=== PATIENT | male | born 1940 | race Caucasian/White ===

== ENCOUNTER 2016-03-25 14:38 | Emergency (ER) | payer MEDICAID, OTHER ==
[~2016-03-25] VITALS: Ht 175.3 cm; Wt 49.0 kg
[~2016-03-25 14:38] MED LIST: ALBU17AE3 IH; CEFU500T PO; DOXY100C2 PO
[2016-03-25] MEDS ORDERED: NS IV 1000 ML 1,000 ML IV ONE (15:22)
[2016-03-25] MEDS ORDERED: RT-ALBUTEROL/IPRATROPIUM 3 ML (DUONEB) VIAL INH ONE (15:30)
--- NOTE | 2016-03-25 15:37 | ED General ---
General Chief Complaint: Neurological Problems Stated Complaint: CONFUSED Nursing Triage Note: AMB TO ED WITH MALE FRIEND. PATIENT REPORTS THAT HE HAS BEEN GETTING CONFUSED OFF AND ON FOR A WHILE LEFT HOME TODAY AND GOT LOST. UNKONW WHAT TIME CONFUSION STARTED. FRIEND LEFT PHONE NUMBER [phone] Nursing Sepsis Screen: No Definite Risk Source of Information: Patient, Old Records Exam Limitations: No Limitations History of Present Illness Time Seen by Provider: 15:13 Initial Comments This 75-year-old male patient was dropped off at the emergency room by a friend or acquaintance because he was lost. He was unable to find his way home to the [facility] where he reportedly lives. Review of his chart notes that in July he was homeless and sleeping at the [facility]. He is aware he is at the hospital but does not know what month it is. He appears cachectic and is wheezing. He also reports coughing up blood occasionally and having upper abdominal pain with nausea and vomiting. He denies any substance use except cigarettes. When I asked how long he had been ill, he stated "I don't ever recall being healthy". An ER visit from 2012 Notes history of methamphetamine abuse. Allergies and Home Medications Allergies Coded Allergies: No Known Drug Allergies (Unverified , 04/09/12) Home Medications Albuterol 17 Gm Inh #1 2 SPRAY IH Q 4 HOURS PRN PRN FOR BREATHING Prescribed by: GIANNI PABLO on 04/09/121757 Albuterol Sulfate 8.5 Gm Hfa.aer.ad #1 1-4 PUFF IH Q4H PRN PRN SHORTNESS OF BREATH Prescribed by: DAVIE ZIMMERMAN on 03/25/16 1730 Cefuroxime Axetil 500 Mg Tablet #14 500 MG PO BID Prescribed by: AROLDO POST on 08/20/15 1818 Doxycycline Hyclate 100 Mg Capsule #20 1 EACH PO BID FOR INFECTION Prescribed by: GIANNI PABLO on 04/09/12 175 Constitutional: weakness EENTM: no symptoms reported Respiratory: see HPI Cardiovascular: no symptoms reported Gastrointestinal: see HPI Genitourinary: no symptoms reported Musculoskeletal: no symptoms reported Skin: no symptoms reported Psychiatric/Neurological: See HPI Hematologic/Lymphatic: No Symptoms Reported Past Hvkdabl-Nktgro-Cjfuwz Hx Patient Social History Alcohol Use: Past History Recreational Drug Use: Yes (prior methamphetamines) Smoking Status: Current Everyday Smoker Recent Foreign Travel: No Contact w/Someone Who Travel: No Recent Infectious Disease Expo: No Recent Hopitalizations: No Surgeries HX Surgeries: Yes (APPY) Surgeries: Appendectomy Respiratory Hx Respiratory Disorders: Yes Respiratory Disorders: COPD Cardiovascular Hx Cardiac Disorders: No Neurological Hx Neurological Disorders: Yes Neurological Disorders: Neuropathy Reproductive System Hx Reproductive Disorders: No Genitourinary Hx Genitourinary Disorders: No Gastrointestinal Hx Gastrointestinal Disorders: No Musculoskeletal Hx Musculoskeletal Disorders: No Endocrine Hx Endocrine Disorders: Yes Endocrine Disorders: Diabetes, Non-Insulin dep HEENT HX ENT Disorders: No Cancer Hx Cancer: No Psychosocial Hx Psychiatric Problems: Yes (substance abuse, hx homelessness) Physical Exam Vital Signs Vital Sign - Last 12Hours 03/25/16 15:02 Temp 98.6 Pulse 87 Resp 18 B/P 185/91 Pulse Ox 97 O2 Delivery Room Air Capillary Refill : Less Than 3 Seconds General Appearance: No Apparent Distress WD/WN Chronically ill Cachetic HEENT: PERRL/EOMI Normal ENT Inspection Other (oropharynx dry) Neck: Normal Inspection Respiratory: Normal Breath Sounds No Accessory Muscle Use No Respiratory Distress Wheezing (diffuse with decreased air movement) Cardiovascular: Regular Rate, Rhythm No Edema No Murmur Gastrointestinal: Normal Bowel Sounds Soft Tenderness (mild in the epigastrium and suprapubic regions) Extremity: Normal Inspection No Pedal Edema Neurologic/Psychiatric: Alert Motor Weakness (generalized) Other (disoriented to month. Depressed mood. Fine tremor) Skin: Normal Color Warm/Dry Progress/Results/Core Measures Results/Orders Lab Results Laboratory Tests Test 03/25/16 15:35 03/25/16 16:41 Range/Units Activated Partial Thromboplast Time 26 24-35 SEC Alanine Aminotransferase (ALT/SGPT) 11 0-55 U/L Albumin 4.2 3.2-4.5 G/DL Alkaline Phosphatase 41 40-136 U/L Anion Gap 8 5-14 MMOL/L Aspartate Amino Transf (AST/SGOT) 14 5-34 U/L BUN/Creatinine Ratio 14 Basophils # (Auto) 0.0 0.0-0.1 10^3/uL Basophils (%) (Auto) 0 0-10 % Blood Urea Nitrogen 16 7-18 MG/DL Calcium Level 9.4 8.5-10.1 MG/DL Carbon Dioxide Level 30 21-32 MMOL/L Chloride Level 104 98-107 MMOL/L Creatinine 1.11 0.60-1.30 MG/DL Eosinophils # (Auto) 0.1 0.0-0.3 10^3/uL Eosinophils (%) (Auto) 1 0-10 % Estimat Glomerular Filtration Rate > 60 Glucose Level 73 70-105 MG/DL Hematocrit 43 40-54 % Hemoglobin 14.4 13.3-17.7 G/DL INR Comment 1.0 0.8-1.4 Lactic Acid Level 1.3 0.5-2.0 MMOL/L Lipase 15 8-78 U/L Lymphocytes # (Auto) 3.7 1.0-4.0 X 10^3 Lymphocytes (%) (Auto) 37 12-44 % Mean Corpuscular Hemoglobin 31 25-34 PG Mean Corpuscular Hemoglobin Concent 33 32-36 G/DL Mean Corpuscular Volume 92 80-99 FL Mean Platelet Volume 9.8 7.4-10.4 FL Monocytes # (Auto) 0.9 0.0-1.0 X 10^3 Monocytes (%) (Auto) 9 0-12 % Neutrophils # (Auto) 5.5 1.8-7.8 X 10^3 Neutrophils (%) (Auto) 54 42-75 % Platelet Count 234 130-400 10^3/uL Potassium Level 3.9 3.6-5.0 MMOL/L Prothrombin Time 13.1 12.2-14.7 SEC Red Blood Count 4.72 4.35-5.85 10^6/uL Red Cell Distribution Width 13.7 10.0-14.5 % Serum Alcohol < 10 <10 MG/DL Sodium Level 142 135-145 MMOL/L Total Bilirubin 0.3 0.1-1.0 MG/DL Total Protein 7.3 6.4-8.2 G/DL White Blood Count 10.2 4.3-11.0 10^3/uL Urine Bacteria NONE /HPF Urine Bilirubin NEGATIVE NEGATIVE Urine Casts NONE /LPF Urine Clarity CLEAR Urine Color YELLOW Urine Crystals NONE /LPF Urine Culture Indicated NO Urine Glucose (UA) NEGATIVE NEGATIVE Urine Ketones NEGATIVE NEGATIVE Urine Leukocyte Esterase NEGATIVE NEGATIVE Urine Mucus NEGATIVE /LPF Urine Nitrite NEGATIVE NEGATIVE Urine Protein 1+ H NEGATIVE Urine RBC NONE /HPF Urine RBC (Auto) NEGATIVE NEGATIVE Urine Specific [place] 1.010 L 1.016-1.022 Urine Urobilinogen NORMAL NORMAL MG/DL Urine WBC RARE /HPF Urine pH 7 5-9 My Orders Orders-DAVIE MENDOZA MD Alcohol (03/25/16 15:13) Cbc With Automated Diff (03/25/16 15:13) Comprehensive Metabolic Panel (03/25/16 15:13) Drug Screen Stat (Urine) (03/25/16 15:13) Ua Culture If Indicated (03/25/16 15:13) Saline Lock/Iv-Start (03/25/16 15:13) Lactic Acid Analyzer (03/25/16 15:21) Blood Culture (03/25/16 15:21) Sputum Culture (03/25/16 15:21) Protime With Inr (03/25/16 15:21) Partial Thromboplastin Time (03/25/16 15:21) Chest 1 View, Ap/Pa Only (03/25/16 15:21) O2 (03/25/16 15:21) Vital Signs Adult Sepsis Patie Q1HR (03/25/16 15:21) Ns Iv 1000 Ml (Sodium Chloride 0.9%) (03/25/16 15:22) Lipase (03/25/16 15:25) Albuterol/Ipra Inhalation Soln (Duoneb I (03/25/16 15:30) Svn Sm Volume Nebulizer Rt-Rfs (03/25/16 15:27) Medications Given in ED Current Medications Medications Dose Ordered Sig/Amy Route Start Time Stop Time Status Last Admin Dose Admin Albuterol/ Ipratropium 3 ml ONCE ONCE INH 03/25/16 15:30 03/25/16 15:31 DC 03/25/16 15:33 3 ML Sodium Chloride 1,000 ml @ 0 mls/hr Q0M ONCE IV 03/25/16 15:22 03/25/16 15:24 DC 03/25/16 15:42 1,000 MLS/HR Vital Signs/I&O Vital Sign - Last 12Hours 03/25/16 03/25/16 15:02 15:36 Temp 98.6 Pulse 87 Resp 18 B/P 185/91 Pulse Ox 97 95 O2 Delivery Room Air Room Air Blood Pressure Mean: 122 Progress Note #1: Time: 16:39 Progress Note Patient received a liter of IV fluids. Vital signs were within normal range. There was no hypoxia or tachycardia. No lower extremity tenderness in the calves beyond his chronic neuropathy. DuoNeb and improved his wheezing. Urine studies are pending. Progress Note #2: Time: 17:31 Progress Note Urine showed no evidence of infection. Patient was feeling better and was requesting discharge. His acquaintance was contacted to give him a ride. Progress Note #3: Time: 17:39 Progress Note As patient was checking out he requested medication for his chronic neck pain. This request was denied as it was not the complaint for which he was brought to the emergency room. I informed him treatment of chronic pain is the function of a primary care physician and not the emergency room. He was urged to follow up with his primary care provider. I also addressed the results of his urine drug screen. Patient denied methamphetamine use but did admit to marijuana. I informed him substance abuse was likely the cause of his intermittent confusion. Patient was significantly more alert and less confused prior to dismissal. Diagnostic Imaging Diagonstic Imaging: Xray Plain Films/CT/US/NM/MRI: chest Comments Chest x-ray viewed by me and compared with prior. Report reviewed. See report below: NAME: STEVO CAVANAUGH [facility] REC#: [id number] PT STATUS: REG ER : 1940 PHYSICIAN: DAVIE MENDOZA MD ADMIT DATE: 03/25/16/ER Draft Date of Exam:03/25/16 CHEST 1 VIEW, AP/PA ONLY INDICATION: Cough and confusion. TIME OF EXAM: 1558 hours. COMPARISON: Comparison is made to study of 08/20/2015. FINDINGS: Similar to the previous study, interstitial markings are prominent throughout the lungs with calcified granuloma seen in the right hilum and lung. There is no evidence of pneumothorax, consolidation, or significant pleural fluid. IMPRESSION: Interstitial markings, prominent in both lungs with granulomatous residua, similar to previous exam. No definite acute abnormalities identified. Dictated on workstation # [id number] Dict: 03/25/16 1621 Trans: 03/25/16 1627 [id number] Interpreted by: VELIA ULRICH MD Departure Impression Impression: Primary Impression: COPD exacerbation Additional Impressions: Confusion Polysubstance abuse Disposition: HOME, SELF-CARE Condition: Improved Departure-Patient Inst. Decision time for Depature: 17:29 Referrals: [facility] (PCP/Family) Primary Care Physician Patient Instructions: Exacerbation of COPD Add. Discharge Instructions: Follow-up with your primary care provider soon as possible. Use your albuterol inhaler 1-4 puffs every 4 hours as needed for shortness of air. Return to the emergency room if you have worsening symptoms. Work toward quitting smoking and seek help from your doctor to quit. All discharge instructions reviewed with patient and/or family. Voiced understanding. Scripts Albuterol Sulfate (Proair Hfa)8.5 Gm Hfa.aer.ad1-4 Puff IH Q4H PRN SHORTNESS OF BREATH #1 INH Prov:DAVIE MENDOZA MD 03/25/16 DAVIE MENDOZA MD Mar 25, 2016 15:37
[2016-03-25 15:44] LABS: BASOPHILS % (AUTO) 0 % (0-10); EOSINOPHILS # (AUTO) 0.1 10^3/uL (0.0-0.3); EOSINOPHILS % (AUTO) 1 % (0-10); LYMPHOCYTES # (AUTO) 3.7 X 10^3 (1.0-4.0); LYMPHOCYTES % (AUTO) 37 % (12-44); MEAN CORPUSCULAR HEMOGLOBIN 31 PG (25-34); MEAN CORPUSCULAR HGB CONC 33 G/DL (32-36); MEAN CORPUSCULAR VOLUME 92 FL (80-99); MEAN PLATELET VOLUME 9.8 FL (7.4-10.4); MONOCYTES # (AUTO) 0.9 X 10^3 (0.0-1.0); MONOCYTES % (AUTO) 9 % (0-12); NEUTROPHILS # (AUTO) 5.5 X 10^3 (1.8-7.8); NEUTROPHILS % (AUTO) 54 % (42-75); PLATELET COUNT 234 10^3/uL (130-400); RED BLOOD COUNT 4.72 10^6/uL (4.35-5.85); RED CELL DISTRIBUTION WIDTH 13.7 % (10.0-14.5); WHITE BLOOD COUNT 10.2 10^3/uL (4.3-11.0)
[2016-03-25 15:57] LABS: PROTHROMBIN TIME PATIENT 13.1 SEC (12.2-14.7)
[2016-03-25 16:09] LABS: ALANINE AMINOTRANSFERASE 11 U/L (0-55); ALBUMIN 4.2 G/DL (3.2-4.5); ANION GAP 8 MMOL/L (5-14); ASPARTATE AMINO TRANSFERASE 14 U/L (5-34); BILIRUBIN,TOTAL 0.3 MG/DL (0.1-1.0); BLOOD UREA NITROGEN 16 MG/DL (7-18); BUN/CREATININE RATIO 14; CALCIUM 9.4 MG/DL (8.5-10.1); CARBON DIOXIDE 30 MMOL/L (21-32); CHLORIDE 104 MMOL/L (98-107); CREATININE SERUM 1.11 MG/DL (0.60-1.30); GFR ESTIMATED > 60; GLUCOSE 73 MG/DL (70-105); LIPASE 15 U/L (8-78); POTASSIUM 3.9 MMOL/L (3.6-5.0); SODIUM 142 MMOL/L (135-145); TOTAL PROTEIN 7.3 G/DL (6.4-8.2)
[2016-03-25 16:18] LABS: ALCOHOL < 10 MG/DL (<10)
--- NOTE | 2016-03-25 16:27 | Diagnostic Imaging Report ---
INDICATION: Cough and confusion. TIME OF EXAM: 1558 hours. COMPARISON: Comparison is made to study of 08/20/2015. FINDINGS: Similar to the previous study, interstitial markings are prominent throughout the lungs with calcified granuloma seen in the right hilum and lung. There is no evidence of pneumothorax, consolidation, or significant pleural fluid. IMPRESSION: Interstitial markings, prominent in both lungs with granulomatous residua, similar to previous exam. No definite acute abnormalities identified. Dictated by: Dictated on workstation # [id number]
[2016-03-25 16:51] LABS: BILIRUBIN,URINE NEGATIVE (NEGATIVE); KETONES,URINE NEGATIVE (NEGATIVE); LEUKOCYTE ESTERASE ,URINE NEGATIVE (NEGATIVE); NITRITE,URINE NEGATIVE (NEGATIVE); PH,URINE 7 (5-9); PROTEIN,URINE 1+ (NEGATIVE); UROBILINOGEN,URINE NORMAL (NORMAL)
[2016-03-25 17:03] LABS: WBC,URINE RARE /HPF
[2016-03-25] MEDS ORDERED: RT-ALBUINH IH (17:30)
[2016-03-25 17:32] VITALS: BP 170/92
== END 2016-03-25 17:38 | disposition home or self-care (01) ==
LOC: EDUNIT# 14:38 → ER 14:44
DX: J44.1 Chronic obstructive pulmonary disease with (acute) exacerbation (principal); R41.0 Disorientation, unspecified; E11.9 Type 2 diabetes mellitus without complications; F17.210 Nicotine dependence, cigarettes, uncomplicated; F15.10 Other stimulant abuse, uncomplicated; F12.10 Cannabis abuse, uncomplicated
CPT/HCPCS: 36415; 71010; 80053; 80306; 80320; 81000; 83605; 83690; 85025; 85610; 85730; 87040; 94640; 96360

== ENCOUNTER 2017-10-13 12:47 | Emergency (ER) | payer MEDICAID ==
[~2017-10-13] VITALS: Ht 175.3 cm; Wt 47.6 kg
[~2017-10-13 12:47] MED LIST changes: +RT-ALBUINH IH
--- OUTSIDE RECORDS SUMMARY | 2017-10-13 12:53 | XMS REPORT ---
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 Active 26175502 Problem Tobacco use Z72.0 Active 273363629 ALLERGIES Substance Reaction Event Type Date Status Chicken, Anderson Unknown Non Drug Allergy Oct, Active ENCOUNTERS Encounter Location Date Diagnosis [facility] [id number] [place] [address] Oct, [facility] [id number] [place] [address] 36181- 4480 Aug, [facility] [id number] [place] [address] 46916- 7113 Jul, [facility] [id number] [place] [address] 45659- 1666 Jan, 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 [facility] [id number] [place] [address] 88398- 1564 Jan, Essential hypertension I10 [facility] [id number] [place] [address] 6[address]99- 3760 Jan, [facility] [id number] [place] [address] 17720- 0246 Jan, [facility] [id number] [place] [address] 64284- 2145 Dec, [facility] [address] [address] Dec, [facility] [id number] [place] [address] 92490- 0629 Nov, 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.9 and End stage COPD J44.9 [facility] [id number] [place] [address] 39632- 8991 Oct, Essential hypertension I10 ; Tobacco use Z72.0 and COPD exacerbation J44.1 [facility] [id number] [place] [address] 68364- 6806 Oct, Essential hypertension I10 ; COPD exacerbation J44.1 ; Right arm pain M79.601 and Thickened nails L60.2 [facility] [address] [address] Aug, [facility] [id number] [place] [address] 04627- 75[address] Aug, [facility] [id number] [place] [address] 86493- 4641 Jul, [facility] [id number] [place] [address] 42517- 5904 June, [facility] [id number] [place] [address] 52108- 7531 May, COPD with exacerbation J44.1 and Essential hypertension I10 [facility] [id number] [address] May, 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.9 and COPD exacerbation J44.1 [facility] [id number] [place] [address] 46793- 0173 Apr, Essential hypertension I10 [facility] [address] [address] Apr, Onychomycosis B35.1 ; Nail hypertrophy L60.2 and Self-care deficit for hygiene R46.0 [facility] [id number] [place] [address] 13445- 0151 Jan, 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 ; 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.9 ; Tobacco use Z72.0 ; Essential hypertension I10 and Moderate episode of recurrent major depressive disorder F33.1 [facility] [id number] [place] [address]01 [address] Dec, Neck pain M54.2 ; Essential hypertension I10 and Tobacco dependence F17.200 [facility] [id number] [place] [address] 64016- 9803 May, [facility] [id number] [place] [address] 01181- 6920 May, [facility] [id number] [place] [address] 16431- 2927 Sep, [facility] [id number] [place] [address] 09756- 4910 Sep, [facility] [id number] [place] [address] 85167- 3315 Sep, [facility] [id number] [place] [address] 61907- 8279 Sep, [facility] [id number] [place] [address] 75493- 1899 Aug, [facility] [id number] [place] [address] 31766- 3680 Aug, [facility] [id number] [place] [address] 85151- 8277 Jul, [facility] [id number] [place] [address] 17943- 7015 Jul, [facility] [id number] [place] [address] 27106- 2407 Jul, [facility] [place] [facility] [address] [id number] [place] [address] Jul, [facility] [place] [facility] [address] [id number] [place] [address] Jul, [facility] [place] [facility] [address] [id number] [place] [address]- [address] Jul, [facility] [place] [facility] [address] [id number] [place] [address] Jul, [facility] [place] [facility] [address] [id number] [place] [address]- [address] Jul, [facility] [place] [facility] [address] [id number] [place] [address]- 8957 Jul, [facility] [place] [facility] [address] [id number] [place] [address]- [address] June, [facility] [place] [facility] [address] [id number] [place] [address]- 9013 June, [facility] [place] [facility] [address] [id number] [place] [address]- 8347 June, [facility] [place] [facility] [address] [id number] [place] [address]- 3057 June, [facility] [place] [facility] [address] [id number] [place] [address]- 7327 June, [facility] [place] [facility] [address] [id number] [place] [address]- 7082 June, [facility] [place] [facility] [address] [id number] [place] [address]- 2590 June, [facility] [place] [facility] [address] [id number] [place] [address]- 6169 June, [facility] [place] [facility] [address] [id number] [place] [address]- 9204 June, [facility] [place] [facility] [address] [id number] [place] [address]- [address] June, [facility] [address] [facility] [id number] [place] [address]- 4[address] June, [facility] [address] [facility] [id number] [place] [address]- [address] June, IMMUNIZATIONS No Known Immunizations SOCIAL HISTORY Never Assessed REASON FOR VISIT COPD f/u-AHarrymanRN, Diabetic, having trouble with his feet, states one of his toe nails is black, worker states he had headlice, she treated, now he has a rash, wants hep c testing, thinks he has a blood clot in right arm PLAN OF CARE Activity Details Follow Up 1 Week with Nerissa villegas COPD exac Reason: VITAL SIGNS Height 69 in 2016-11-27 Weight 111.8 lbs 2016-11-27 Temperature 97.8 degrees Fahrenheit 2016-11-27 Heart Rate 82 bpm 2016-11-27 Respiratory Rate 24 2016-11-27 Oximetry 98 % 2016-11-27 BMI 16.51 kg/m2 2016-11-27 Blood pressure systolic 170 mmHg 2016-11-27 Blood pressure diastolic 88 mmHg 2016-11-27 MEDICATIONS Medication Instructions Dosage Frequency Start Date End Date Duration Status Symbicort 160-4.5 mcg/act 1 puff BID 12h 17 Jul, 2013 30 Active PredniSONE 20 mg Orally Once a day 1 tablet 24h 28 Oct, 2016 Nov, 07 days Active Lisinopril 10 mg Orally Once a day 1 tablet 24h 21 Jan, 2016 Active Ventolin HFA 108 (90 Base) MCG/ACT Inhalation every 4-6 hrs as needed 2 puffs as needed June, Active RESULTS No Results PROCEDURES Procedure Date Ordered Result Body Site MEASURE BLOOD OXYGEN LEVEL Nov 27, 2016 [facility] VISIT ESTABLISHED PATIENT Nov 27, 2016 INSTRUCTIONS MEDICATIONS ADMINISTERED No Known Medications MEDICAL (GENERAL) HISTORY Type Description Date Medical History type II diabetes Medical History chronic obstructive pulmonary disease (COPD) Medical History hypertension Surgical History appendectomy Surgical History Dental surgery Hospitalization History COPD multiple times 2015
--- OUTSIDE RECORDS SUMMARY | 2017-10-13 12:53 | XMS REPORT ---
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 Active 02415491 Problem Tobacco use Z72.0 Active 349319233 ALLERGIES No Information ENCOUNTERS Encounter Location Date Diagnosis [facility] [id number] [place] [address] 60387- 2136 Jul, [facility] [id number] [place] [address] 63857- 5644 Jan, 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 [facility] [id number] [place] [address] 80679- 1806 Jan, Essential hypertension I10 [facility] [id number] [place] [address] 12600- 6478 Jan, [facility] [id number] [place] [address] 02732- 4491 Jan, [facility] [id number] [place] [address] 29836- 2952 Dec, [facility] [id number] [place] [address] 65895- 7442 Dec, [facility] [id number] [place] [address] 96375- 5906 Nov, 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.9 and End stage COPD J44.9 [facility] [id number] [place] [address] 97417- 3786 29 Oct, 2016 Essential hypertension I10 ; Tobacco use Z72.0 and COPD exacerbation J44.1 [facility] [id number] [place] [address] 11395- 8271 28 Oct, 2016 Essential hypertension I10 ; COPD exacerbation J44.1 ; Right arm pain M79.601 and Thickened nails L60.2 [place] [id number] [place] [address] 32204- 5442 Aug, [place] [address] [address]- 1967 Aug, [place] [id number] [place] [address] 77241- 5545 Jul, [place] [id number] [place] [address] 67059- 3918 June, [place] [id number] [place] [address] 19861- 8051 May, COPD with exacerbation J44.1 and Essential hypertension I10 [place] [id number] [place] [address] 69728- 8218 May, 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.9 and COPD exacerbation J44.1 [place] [id number] [place] [address] 05117- 4520 Apr, Essential hypertension I10 [place] [id number] [place] [address] 95633- 2767 Apr, Onychomycosis B35.1 ; Nail hypertrophy L60.2 and Self-care deficit for hygiene R46.0 [facility] [id number] [place] [address] 62128- 6976 Jan, 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 ; 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.9 ; Tobacco use Z72.0 ; Essential hypertension I10 and Moderate episode of recurrent major depressive disorder F33.1 [facility] [address] [address] Dec, Neck pain M54.2 ; Essential hypertension I10 and Tobacco dependence F17.200 [facility] [address] [address] 3379 14 May, 2014 [facility] [id number] [place] [address] 43368- 0290 May, [facility] [address] [address]- 5687 Sep, [facility] [id number] [place] [address] 28990- 5021 Sep, [facility] [id number] [place] [address] 49127- 8944 Sep, [facility] [id number] [place] [address] 26513- 2545 Sep, [facility] [address] [address]- 8571 Aug, [facility] [id number] [address]- 6938 Aug, [facility] [address], [place] [address]- 8721 Jul, [facility] [address], [place] [address]- 0262 Jul, [facility] [address], [place] [address]- 8805 Jul, [facility] [address], [place] [address]- 5562 Jul, [facility] [address], [place] [address]- 2661 Jul, [facility] [address] [id number] [place] [address]- 6209 Jul, [facility] [address] [id number] [place] [address]- 4675 Jul, [facility] [address] [id number] [place] [address]- 3578 Jul, [facility] [address] [id number] [place] [address]- 6010 Jul, [facility] [address] [id number] [place] [address]- 5467 June, [facility] [address] [id number] [place] [address]- 5694 June, [facility] [address] [id number] [place] [address]- 9480 June, [facility] [address] [id number] [place] [address]- 6362 June, [facility] [address] [id number] [place] [address]- 9340 June, [facility] [address] [id number] [place] [address]- 3771 June, [facility] [address] [id number] [place] [address]- 3278 June, [facility] [address] [id number] [place] [address]- 5670 June, [facility] [address] [id number] [place] [address]- 7054 June, [facility] [address] [id number] [place] [address]- 0536 June, [facility] [address] [id number] [place] [address]- 3271 June, [facility] [address] [id number] [place] [address]- 9709 June, IMMUNIZATIONS No Known Immunizations SOCIAL HISTORY Never Assessed REASON FOR VISIT [facility]osp[facility] PLAN OF CARE VITAL SIGNS MEDICATIONS Unknown Medications RESULTS No Results PROCEDURES No Known procedures INSTRUCTIONS MEDICATIONS ADMINISTERED No Known Medications MEDICAL (GENERAL) HISTORY Type Description Date Medical History type II diabetes Medical History chronic obstructive pulmonary disease (COPD) Medical History hypertension Surgical History appendectomy Surgical History Dental surgery Hospitalization History COPD multiple times 2016
--- OUTSIDE RECORDS SUMMARY | 2017-10-13 12:53 | XMS REPORT ---
Author Author BRIDGER SAENZ Organization [facility] Address [address] [place] [address] Care Team Providers Care Clerk Entry Level Name Role Phone BRIDGER SAENZ Unavailable PROBLEMS Type Condition ICD9-CM Code CAO84-FR Code Onset Dates Condition Status SNOMED Code Problem End stage COPD J44.9 Active 084665182 Problem Moderate episode of recurrent major depressive disorder F33.1 Active 566591138 Problem Essential hypertension I10 Active 25378583 Problem 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 Active 72066909 Problem Tobacco use Z72.0 Active 980017139 ALLERGIES No Information ENCOUNTERS Encounter Location Date Diagnosis [facility] [id number] [place] [address] 12710- 9083 Jul, [facility] [id number] [place] [address] 95868- 0840 Jan, 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 [facility] [id number] [place] [address] 24744- 3299 Jan, Essential hypertension I10 [facility] [id number] [place] [address] 33892- 8864 Jan, [facility] [id number] [place] [address] 50558- 9272 Jan, [facility] [id number] [place] [address] 52325- 3883 Dec, [facility] [id number] [place] [address] 87957- 1459 Dec, [facility] [id number] [place] [address] 10704- 9175 Nov, 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.9 and End stage COPD J44.9 [facility] [address] [place] [address] 05732- 3790 29 Oct, 2016 Essential hypertension I10 ; Tobacco use Z72.0 and COPD exacerbation J44.1 [facility] [id number] [place] [address] 30627- 3651 28 Oct, 2016 Essential hypertension I10 ; COPD exacerbation J44.1 ; Right arm pain M79.601 and Thickened nails L60.2 [place] [id number] [place] [address] 68034- 4023 Aug, [place] [address] 98033- 3900 Aug, [place] [id number] [place] [address] 37086- 5875 Jul, [place] [id number] [place] [address] 43863- 4374 June, [place] [id number] [place] [address] 52019- 7341 May, COPD with exacerbation J44.1 and Essential hypertension I10 [place] [id number] [place] [address] 87162- 8554 May, 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.9 and COPD exacerbation J44.1 [place] [id number] [place] [address] 72916- 2498 Apr, Essential hypertension I10 [place] [id number] [place] [address] 01533- 6326 Apr, Onychomycosis B35.1 ; Nail hypertrophy L60.2 and Self-care deficit for hygiene R46.0 [facility] [address] [place] [address] 27024- 0867 Jan, 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 ; 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.9 ; Tobacco use Z72.0 ; Essential hypertension I10 and Moderate episode of recurrent major depressive disorder F33.1 [facility] [address] [address] Dec, Neck pain M54.2 ; Essential hypertension I10 and Tobacco dependence F17.200 [facility] [address] [address]- 0930 14 May, 2014 [facility] [id number] [place] [address] 51030- 5001 May, [facility] [address], [place] [address]- 1444 Sep, [facility] [id number] [place] [address] 30469- 7714 Sep, [facility] [id number] [place] [address] 72360- 2900 Sep, [facility] [address] [place] [address] 78401- 3301 Sep, [facility] [address], [place] [address]- 4431 Aug, [facility] [id number] [address]- 8762 Aug, [facility] [address], [place] [address]- 2350 Jul, [facility] [address], [place] [address]- 8328 Jul, [facility] [address], [place] [address]- 3046 Jul, [facility] [address], [place] [address]- 8677 Jul, [facility] [address], [place] [address]- 5903 Jul, [facility] [address] [address] [place] [address]- 4373 Jul, [facility] [address] [id number] [place] [address]- 9132 Jul, [facility] [address] [id number] [place] [address]- 8694 Jul, [facility] [address] [id number] [place] [address]- 5563 Jul, [facility] [address] [id number] [place] [address]- 1908 June, [facility] [address] [id number] [place] [address]- 6761 June, [facility] [address] [id number] [place] [address]- 1941 June, [facility] [address] [id number] [place] [address]- 5847 June, [facility] [address] [id number] [place] [address]- 5347 June, [facility] [address] [id number] [place] [address]- 5387 June, [facility] [address] [id number] [place] [address]- 0356 June, [facility] [address] [id number] [place] [address]- 7278 June, [facility] [address] [id number] [place] [address]- 0462 June, [facility] [address] [id number] [place] [address]- 7369 June, [facility] [address] [id number] [place] [address]- 8576 June, [facility] [address] [id number] [place] [address]- 3531 June, IMMUNIZATIONS No Known Immunizations SOCIAL HISTORY Never Assessed REASON FOR VISIT Requesting medication PLAN OF CARE VITAL SIGNS MEDICATIONS Medication Instructions Dosage Frequency Start Date End Date Duration Status Hydrocodone-Acetaminophen 7.5-325 MG Orally every 6 hrs 1 tablet as needed 6h Jan, Mar, 28 days Active RESULTS No Results PROCEDURES No Known procedures INSTRUCTIONS MEDICATIONS ADMINISTERED No Known Medications MEDICAL (GENERAL) HISTORY Type Description Date Medical History type II diabetes Medical History chronic obstructive pulmonary disease (COPD) Medical History hypertension Surgical History appendectomy Surgical History Dental surgery Hospitalization History COPD multiple times 2016
--- OUTSIDE RECORDS SUMMARY | 2017-10-13 12:53 | XMS REPORT ---
Author Author BRIDGER SAENZ Organization [facility] Address [address] [place] [address] Care Team Providers Care Fire Hydrant Operator Name Role Phone BRIDGER SAENZ Unavailable PROBLEMS Type Condition ICD9-CM Code LOH95-JY Code Onset Dates Condition Status SNOMED Code Problem End stage COPD J44.9 Active 124528656 Problem Moderate episode of recurrent major depressive disorder F33.1 Active 206025565 Problem Essential hypertension I10 Active 80740812 Problem 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 Active 29120677 Problem Tobacco use Z72.0 Active 877777920 ALLERGIES No Information ENCOUNTERS Encounter Location Date Diagnosis [facility] [id number] [place] [address] 51219- 9526 Jul, [facility] [id number] [place] [address] 43780- 7277 Jan, 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 [facility] [id number] [place] [address] 81671- 7082 Jan, Essential hypertension I10 [facility] [id number] [place] [address] 78407- 2319 Jan, [facility] [id number] [place] [address] 50417- 6103 Jan, [facility] [id number] [place] [address] 73368- 9859 Dec, [facility] [id number] [place] [address] 95346- 8595 Dec, [facility] [id number] [place] [address] 23131- 3363 Nov, 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.9 and End stage COPD J44.9 [facility] [address] [place] [address] 64685- 3180 29 Oct, 2016 Essential hypertension I10 ; Tobacco use Z72.0 and COPD exacerbation J44.1 [facility] [id number] [place] [address] 97914- 7708 28 Oct, 2016 Essential hypertension I10 ; COPD exacerbation J44.1 ; Right arm pain M79.601 and Thickened nails L60.2 [place] [id number] [place] [address] 69432- 7437 Aug, [place] [address] 97523- 4978 Aug, [place] [id number] [place] [address] 97066- 8345 Jul, [place] [id number] [place] [address] 86426- 4034 June, [place] [id number] [place] [address] 60293- 2009 May, COPD with exacerbation J44.1 and Essential hypertension I10 [place] [id number] [place] [address] 86903- 1419 May, 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.9 and COPD exacerbation J44.1 [place] [id number] [place] [address] 01231- 5743 Apr, Essential hypertension I10 [place] [id number] [place] [address] 30076- 1908 Apr, Onychomycosis B35.1 ; Nail hypertrophy L60.2 and Self-care deficit for hygiene R46.0 [facility] [address] [place] [address] 20838- 3428 Jan, 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 ; 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.9 ; Tobacco use Z72.0 ; Essential hypertension I10 and Moderate episode of recurrent major depressive disorder F33.1 [facility] [address], [place] [address]74 Dec, Neck pain M54.2 ; Essential hypertension I10 and Tobacco dependence F17.200 [facility] [address], [place] [address]- 4607 14 May, 2014 [facility] [id number] [place] [address] 97287- 8803 May, [facility] [address], [place] [address]- 3405 Sep, [facility] [id number] [place] [address] 45020- 7505 Sep, [facility] [id number] [place] [address] 44161- 1215 Sep, [facility] [address] [place] [address] 58527- 2883 Sep, [facility] [address], [place] [address]- 7436 Aug, [facility] [address], [place] [address]- 1871 Aug, [facility] [address], [place] [address]- 4301 Jul, [facility] [address], [place] [address]- 8445 Jul, [facility] [address], [place] [address]- 6233 Jul, [facility] [address], [place] [address]- 7187 Jul, [facility] [address], [place] [address]- 4876 Jul, [facility] [address] [address] [place] [address]- 7090 Jul, [facility] [address] [id number] [place] [address]- 0851 Jul, [facility] [address] [id number] [place] [address]- 2792 Jul, [facility] [address] [id number] [place] [address]- 5734 Jul, [facility] [address] [id number] [place] [address]- 1723 June, [facility] [address] [id number] [place] [address]- 1728 June, [facility] [address] [id number] [place] [address]- 3373 June, [facility] [address] [id number] [place] [address]- 1355 June, [facility] [address] [id number] [place] [address]- 7682 June, [facility] [address] [id number] [place] [address]- 0632 June, [facility] [address] [id number] [place] [address]- 5220 June, [facility] [address] [id number] [place] [address]- 0137 June, [facility] [address] [id number] [place] [address]- 2425 June, [facility] [address] [id number] [place] [address]- 9444 June, [facility] [address] [id number] [place] [address]- 6237 June, [facility] [address] [id number] [place] [address]- 1513 June, IMMUNIZATIONS No Known Immunizations SOCIAL HISTORY Never Assessed REASON FOR VISIT Refill request PLAN OF CARE VITAL SIGNS MEDICATIONS Unknown Medications RESULTS No Results PROCEDURES No Known procedures INSTRUCTIONS MEDICATIONS ADMINISTERED No Known Medications MEDICAL (GENERAL) HISTORY Type Description Date Medical History type II diabetes Medical History chronic obstructive pulmonary disease (COPD) Medical History hypertension Surgical History appendectomy Surgical History Dental surgery Hospitalization History COPD multiple times 2015
--- OUTSIDE RECORDS SUMMARY | 2017-10-13 12:53 | XMS REPORT ---
Author Author BRIDGER SAENZ Organization [facility] Address [address] [place] [address] Care Team Providers Care Rv Servicer Name Role Phone BRIDGER SAENZ Unavailable PROBLEMS Type Condition ICD9-CM Code [id number] Code Onset Dates Condition Status SNOMED Code Problem End stage COPD J44.9 Active 313193567 Problem Moderate episode of recurrent major depressive disorder F33.1 Active 387650396 Problem Essential hypertension I10 Active 29149358 Problem 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 Active 36890844 Problem Tobacco use Z72.0 Active 687259079 ALLERGIES Substance Reaction Event Type Date Status Chicken, [place] Unknown Non Drug Allergy Nov, Active ENCOUNTERS Encounter Location Date Diagnosis [facility] [id number] [place] [address] 39063- 5735 Oct, [facility] [id number] [place] [address] 98124- 6139 Aug, [facility] [id number] [place] [address] 61550- 1409 Jul, [facility] [id number] [place] [address] 01651- 7626 Jan, 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 [facility] [id number] [place] [address] 33721- 6677 Jan, Essential hypertension I10 [facility] [id number] [place] [address] 90864- 4129 Jan, [facility] [id number] [place] [address] 69077- 6958 Jan, [facility] [id number] [place] [address] 05545- 5813 Dec, [facility] [address] [address] Dec, [facility] [id number] [place] [address] 35436- 4924 Nov, 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.9 and End stage COPD J44.9 [facility] [id number] [place] [address] 51517- 3924 Oct, Essential hypertension I10 ; Tobacco use Z72.0 and COPD exacerbation J44.1 [facility] [id number] [place] [address] 07528- 2244 Oct, Essential hypertension I10 ; COPD exacerbation J44.1 ; Right arm pain M79.601 and Thickened nails L60.2 [facility] [address] [address] 25[address] Aug, [facility] [id number] [place] [address] 68678- 6230 Aug, [facility] [id number] [place] [address] 71797- 1000 Jul, [facility] [id number] [place] [address] 54734- 1792 June, [facility] [id number] [place] [address] 20665- 6231 May, COPD with exacerbation J44.1 and Essential hypertension I10 [facility] [id number] [address] 3530 May, 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.9 and COPD exacerbation J44.1 [facility] [id number] [place] [address] 23324- 3633 Apr, Essential hypertension I10 [facility] [address] [address] 4024 Apr, Onychomycosis B35.1 ; Nail hypertrophy L60.2 and Self-care deficit for hygiene R46.0 [facility] [id number] [place] [address] 05175- 7520 Jan, 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 ; 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.9 ; Tobacco use Z72.0 ; Essential hypertension I10 and Moderate episode of recurrent major depressive disorder F33.1 [facility] [id number] [place] [address] 77817 -2384 Dec, Neck pain M54.2 ; Essential hypertension I10 and Tobacco dependence F17.200 [facility] [id number] [place] [address] 20557- 1315 May, [facility] [id number] [place] [address] 51364- 6147 May, [facility] [id number] [place] [address] 15301- 5617 Sep, [facility] [id number] [place] [address] 20651- 2911 Sep, [facility] [id number] [place] [address] 53236- 4388 Sep, [facility] [id number] [place] [address] 08332- 3637 Sep, [facility] [id number] [place] [address] 71308- 4893 Aug, [facility] [id number] [place] [address] 01475- 3356 Aug, [facility] [id number] [place] [address] 97566- 6501 Jul, [facility] [id number] [place] [address] 91249- 3522 Jul, [facility] [id number] [place] [address] 30931- 3198 Jul, [facility] [place] [facility] [address] [id number] [place] [address]- 7483 Jul, [facility] [place] [facility] [address] [id number] [place] [address]- 2505 Jul, [facility] [place] [facility] [address] [id number] [place] [address]- 4098 Jul, [facility] [place] [facility] [address] [id number] [place] [address]- 7792 Jul, [facility] [place] [facility] [address] [id number] [place] [address]- 9109 Jul, [facility] [place] [facility] [address] [id number] [place] [address]- 3159 Jul, [facility] [place] [facility] [address] [id number] [place] [address]- 3866 June, [facility] [place] [facility] [address] [id number] [place] [address]- 6148 June, [facility] [place] [facility] [address] [id number] [place] [address]- 2580 June, [facility] [place] [facility] [address] [id number] [place] [address]- 2643 June, [facility] [place] [facility] [address] [id number] [place] [address]- 8793 June, [facility] [place] [facility] [address] [id number] [place] [address]- 3697 June, [facility] [place] [facility] [address] [id number] [place] [address]- 5152 June, [facility] [place] [facility] [address] [id number] [place] [address]- 1275 June, [facility] [place] [facility] [address] [id number] [place] [address]- 7298 June, [facility] [place] [facility] [address] [id number] [place] [address] June, [facility] [address] [facility] [id number] [place] [address]- 8569 June, [facility] [address] [facility] [id number] [place] [address] 9[address] June, IMMUNIZATIONS Vaccine Route Administration Date Status SOLUMEDROL (UP TO 125 MG) IM Intramuscular Dec 04, 2016 Administered SOCIAL HISTORY Never Assessed REASON FOR VISIT COPD f/u -ANH Harper PLAN OF CARE Activity Details Follow Up Patient admitted to Hospice Reason: VITAL SIGNS Height 69 in 2016-12-04 Weight 112 lbs 2016-12-04 Temperature 98.5 degrees Fahrenheit 2016-12-04 Heart Rate 77 bpm 2016-12-04 Respiratory Rate 28 2016-12-04 Oximetry 98 % 2016-12-04 BMI 16.54 kg/m2 2016-12-04 Blood pressure systolic 200 mmHg 2016-12-04 Blood pressure diastolic 100 mmHg 2016-12-04 MEDICATIONS Medication Instructions Dosage Frequency Start Date End Date Duration Status Symbicort 160-4.5 mcg/act 1 puff BID 12h 17 Jul, 2013 30 Active Lisinopril 10 mg Orally Once a day 1 tablet 24h Dec, Active PredniSONE 20 mg Orally Once a day 1 tablet 24h Oct, Nov, 07 days Active Ventolin HFA 108 (90 Base) MCG/ACT Inhalation every 4-6 hrs as needed 2 puffs as needed June, Active RESULTS No Results PROCEDURES Procedure Date Ordered Result Body Site MEASURE BLOOD OXYGEN LEVEL Dec 04, 2016 NEB/MDI RX INITIAL Dec 04, 2016 THER/PROPH/DIAG INJ, SC/IM Dec 04, 2016 SOLUMEDROL (UP TO 125 MG) Dec 04, 2016 [facility] VISIT ESTABLISHED PATIENT Dec 04, 2016 INSTRUCTIONS MEDICATIONS ADMINISTERED No Known Medications MEDICAL (GENERAL) HISTORY Type Description Date Medical History type II diabetes Medical History chronic obstructive pulmonary disease (COPD) Medical History hypertension Surgical History appendectomy Surgical History Dental surgery Hospitalization History COPD multiple times 2015
--- OUTSIDE RECORDS SUMMARY | 2017-10-13 12:54 | XMS REPORT ---
Author Author BRIDGER SAENZ Organization [facility] Address [address] [place] [address] Care Team Providers Care Commissioning Agent Name Role Phone BRIDGER SAENZ Unavailable PROBLEMS Type Condition ICD9-CM Code [id number] Code Onset Dates Condition Status SNOMED Code Problem Tobacco use Z72.0 Active 630596167 Problem COPD with exacerbation J44.1 Active 010264163 Problem COPD exacerbation J44.1 Active 772351369 Problem Essential hypertension I10 Active 54395201 Problem Moderate episode of recurrent major depressive disorder F33.1 Active 457506120 Problem 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.9 Active 051611549 Problem 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 Active 11866790 ALLERGIES Substance Reaction Event Type Date Status Chicken, [place] Unknown Non Drug Allergy Jan, Active SOCIAL HISTORY No smoking Hx information available PLAN OF CARE Activity Details Follow Up 4 Weeks with Nerissa f/u COPD and labs Reason: VITAL SIGNS Height 69 in 2016-02-20 Weight 122.5 lbs 2016-02-20 Temperature 97.6 degrees Fahrenheit 2016-02-20 Heart Rate 76 bpm 2016-02-20 Respiratory Rate 22 2016-02-20 Oximetry 97 % 2016-02-20 BMI 18.09 kg/m2 2016-02-20 Blood pressure systolic 164 mmHg 2016-02-20 Blood pressure diastolic 82 mmHg 2016-02-20 MEDICATIONS Medication Instructions Dosage Frequency Start Date End Date Duration Status Symbicort 160-4.5 mcg/actuation 1 puff BID 12h 17 Jul, 2013 Active Lisinopril 10 mg Orally Once a day 1 tablet 24h Dec, Active Mobic 15 MG Orally Once a day 1 tablet 24h Dec, Jan, 30 day(s) Active Albuterol Sulfate 90 mcg/actuation 2 puffs by Inhalation route every 4-6 hours as needed PRN Jul, Active RESULTS No Results PROCEDURES Procedure Date Ordered Related Diagnosis Body Site MEASURE BLOOD OXYGEN LEVEL Feb 20, 2016 Office Visit, Est Pt., Level 4 Feb 20, 2016 IMMUNIZATIONS No Known Immunizations
--- OUTSIDE RECORDS SUMMARY | 2017-10-13 12:54 | XMS REPORT ---
Author Author MEGHA OCASIO [facility] Address [address] [place] [address] Care Team Providers Care Supervisor Poultry Processing Name Role Phone MEGHA OCASIO Unavailable PROBLEMS Type Condition ICD9-CM Code [id number] Code Onset Dates Condition Status SNOMED Code Problem End stage COPD J44.9 Active 713879013 Problem Moderate episode of recurrent major depressive disorder F33.1 Active 177065241 Problem Essential hypertension I10 Active 73072473 Problem 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 Active 55127648 Problem Tobacco use Z72.0 Active 177036350 ALLERGIES Substance Reaction Event Type Date Status Chicken, [place] Unknown Non Drug Allergy Oct, Active ENCOUNTERS Encounter Location Date Diagnosis [facility] [id number] [place] [address] 19880- 1307 Jul, [facility] [id number] [place] [address] 51082- 4600 Jan, 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 [facility] [id number] [place] [address] 32716- 2917 Jan, Essential hypertension I10 [facility] [id number] [place] [address] 45136- 0720 Jan, [facility] [id number] [place] [address] 56336- 8187 Jan, [facility] [address] 44685- 4120 Dec, [facility] [id number] [place] [address] 17778- 0284 Dec, [facility] [id number] [place] [address] 67664- 5559 Nov, 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.9 and End stage COPD J44.9 [facility] [id number] [place] [address] 70437- 9545 Oct, Essential hypertension I10 ; Tobacco use Z72.0 and COPD exacerbation J44.1 [facility] [id number] [place] [address] 14503- 7643 Oct, Essential hypertension I10 ; COPD exacerbation J44.1 ; Right arm pain M79.601 and Thickened nails L60.2 [facility] [id number] [place] [address] 97134- 8760 Aug, [facility] [address] 65737- 3395 Aug, [facility] [id number] [place] [address] 39839- 7425 Jul, [facility] [id number] [place] [address] 27910- 7248 June, [facility] [id number] [place] [address] 87924- 2921 May, COPD with exacerbation J44.1 and Essential hypertension I10 [facility] [id number] [place] [address] 62246- 8361 May, 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.9 and COPD exacerbation J44.1 [facility] [id number] [place] [address] 80965- 9707 Apr, Essential hypertension I10 [facility] [id number] [place] [address] 73433- 0678 Apr, Onychomycosis B35.1 ; Nail hypertrophy L60.2 and Self-care deficit for hygiene R46.0 [facility] [id number] [place] [address] 35990- 0702 Jan, 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 ; 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.9 ; Tobacco use Z72.0 ; Essential hypertension I10 and Moderate episode of recurrent major depressive disorder F33.1 [facility] [address] [address] Dec, Neck pain M54.2 ; Essential hypertension I10 and Tobacco dependence F17.200 [facility] [id number] [place] [address]- 2091 May, [facility] [id number] [place] [address] 99085- 6505 May, [facility] [id number] [place] [address] 15507- 3719 Sep, [facility] [id number] [place] [address] 85978- 6762 Sep, [facility] [id number] [place] [address] 48888- 1681 Sep, [facility] [address] [address]- 0920 Sep, [facility] [id number] [place] [address]- 0169 Aug, [facility] [address] [place] [address]- 6781 Aug, [facility] [address] [address]- 7119 Jul, [facility] [address] [address]- 3594 Jul, [facility] [id number] [place] [address]- 9737 Jul, [facility] [address] [place] [address]- 0696 Jul, [facility] [address] [place] [address]- 5121 Jul, [facility] [place] [facility] [address] [id number] [place] [address]- 5682 Jul, [facility] [place] [facility] [address] [id number] [place] [address]- 5766 Jul, [facility] [place] [facility] [address] [id number] [place] [address]- 1381 Jul, [facility] [place] [facility] [address] [id number] [place] [address]- 8220 Jul, [facility] [place] [facility] [address] [id number] [place] [address]- 3792 June, [facility] [place] [facility] [address] [id number] [place] [address]- 4229 June, [facility] [place] [facility] [address] [id number] [place] [address]- 8849 June, [facility] [place] [facility] [address] [id number] [place] [address]- 5443 June, [facility] [place] [facility] [address] [id number] [place] [address]- 9705 June, [facility] [place] [facility] [address] [id number] [place] [address]- 3649 June, [facility] [place] [facility] [address] [id number] [place] [address]- 9906 June, [facility] [place] [facility] [address] [id number] [place] [address]- 5823 June, [facility] [place] [facility] [address] [id number] [place] [address]- 8597 June, [facility] [place] [facility] [address] [id number] [place] [address]- 2415 June, [facility] [place] [facility] [address] [id number] [place] [address]- 5006 June, [facility] [place] [facility] [address] [id number] [place] [address]- 5230 June, IMMUNIZATIONS No Known Immunizations SOCIAL HISTORY Never Assessed REASON FOR VISIT COPD---DOMINIQUE Mcguire PLAN OF CARE Activity Details Follow Up prn Reason: VITAL SIGNS Height 69 in 2016-11-28 Weight 111.0 lbs 2016-11-28 Temperature 98.1 degrees Fahrenheit 2016-11-28 Heart Rate 88 bpm 2016-11-28 Respiratory Rate 24 2016-11-28 Oximetry 100 % 2016-11-28 BMI 16.39 kg/m2 2016-11-28 Blood pressure systolic 189 mmHg 2016-11-28 Blood pressure diastolic 84 mmHg 2016-11-28 MEDICATIONS Medication Instructions Dosage Frequency Start Date End Date Duration Status PredniSONE 20 mg Orally Once a day 1 tablet 24h Oct, Nov, 07 days Active Ventolin HFA 108 (90 Base) MCG/ACT Inhalation every 4-6 hrs as needed 2 puffs as needed June, Active Lisinopril 10 mg Orally Once a day 1 tablet 24h Dec, Active Symbicort 160-4.5 mcg/act 1 puff BID 12h Jul, 30 Active RESULTS No Results PROCEDURES Procedure Date Ordered Result Body Site MEASURE BLOOD OXYGEN LEVEL Nov 28, 2016 INSTRUCTIONS MEDICATIONS ADMINISTERED No Known Medications MEDICAL (GENERAL) HISTORY Type Description Date Medical History type II diabetes Medical History chronic obstructive pulmonary disease (COPD) Medical History hypertension Surgical History appendectomy Surgical History Dental surgery Hospitalization History COPD multiple times 2015
--- OUTSIDE RECORDS SUMMARY | 2017-10-13 12:54 | XMS REPORT ---
Author Author BRIDGER SAENZ Organization [facility], [place] Address [address] [place] [address] Care Team Providers Care Aquatic Laborer Name Role Phone BRIDGER SAENZ Unavailable PROBLEMS Type Condition ICD9-CM Code BEV81-UI Code Onset Dates Condition Status SNOMED Code Problem End stage COPD J44.9 Active 280818954 Problem Moderate episode of recurrent major depressive disorder F33.1 Active 724123825 Problem Essential hypertension I10 Active 73842206 Problem 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 Active 21442159 Problem Tobacco use Z72.0 Active 432067240 ALLERGIES Substance Reaction Event Type Date Status Chicken, [place] Unknown Non Drug Allergy May, Active ENCOUNTERS Encounter Location Date Diagnosis [facility], [place] [id number] [place] [address] 35520- 5412 Jul, [facility] [place] [id number] [place] [address] 30413- 2950 Jan, 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 [facility] [place] [id number] [place] [address] 15255- 8332 Jan, Essential hypertension I10 [facility] [place] [id number] [place] [address] 09004- 5543 Jan, [facility] [place] [id number] [place] [address] 16073- 1063 Jan, [facility] [place] [address] [address]15- 0689 Dec, [facility] [place] [id number] [place] [address] 76001- 6566 Dec, [facility] [place] [id number] [place] [address] 13721- 6389 Nov, 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.9 and End stage COPD J44.9 [facility] [facility] [id number] [place] [address] 40989- 4443 Oct, Essential hypertension I10 ; Tobacco use Z72.0 and COPD exacerbation J44.1 [place] [id number] [place] [address] 95039- 0653 Oct, Essential hypertension I10 ; COPD exacerbation J44.1 ; Right arm pain M79.601 and Thickened nails L60.2 [place] [id number] [place] [address] 81516- 2825 Aug, [place] [address] 42951- 7450 Aug, [place] [id number] [place] [address] 90786- 9380 Jul, [place] [id number] [place] [address] 50356- 2916 June, [place] [id number] [place] [address] 55709- 6128 May, COPD with exacerbation J44.1 and Essential hypertension I10 [facility] [facility] [id number] [place] [address] 49461- 7092 May, 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.9 and COPD exacerbation J44.1 [place] [id number] [place] [address] 15790- 0355 Apr, Essential hypertension I10 [place] [id number] [place] [address] 17478- 5296 Apr, Onychomycosis B35.1 ; Nail hypertrophy L60.2 and Self-care deficit for hygiene R46.0 [facility] [place] [id number] [place] [address] 64976- 9910 Jan, 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 ; 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.9 ; Tobacco use Z72.0 ; Essential hypertension I10 and Moderate episode of recurrent major depressive disorder F33.1 [facility] [address] [address] Dec, Neck pain M54.2 ; Essential hypertension I10 and Tobacco dependence F17.200 [facility], [place] [id number] [address] 74[address] May, [facility] [place] [id number] [place] [address] 59011- 9229 May, [facility] [place] [id number] [place] [address] 13214- 1233 Sep, [facility] [place] [id number] [place] [address] 01083- 9789 Sep, [facility] [place] [id number] [place] [address] 43718- 6448 Sep, [facility] [place] [address] [address] 0072 Sep, [facility] [place] [id number] [address] 4270 Aug, [facility] [place] [address] [address]- 9302 Aug, [facility] [place] [address] [address]- 2539 Jul, [facility] [place] [address] [address]- 4282 Jul, [facility] [place] [id number] [address]- 0651 Jul, [facility] [place] [address] [address]- 7228 Jul, [facility] [place] [address] [address] 4847 Jul, [facility] [place] [facility] [address] [id number] [place] [address]- 6615 Jul, [facility] [place] [facility] [address] [id number] [place] [address]- 8641 Jul, [facility] [place] [facility] [address] [id number] [place] [address]- 4451 Jul, [facility] [place] [facility] [address] [id number] [place] [address]- 5089 Jul, [facility] [place] [facility] [address] [id number] [place] [address]- 2318 June, [facility] [place] [facility] [address] [id number] [place] [address]- 2354 June, [facility] [place] [facility] [address] [id number] [place] [address]- 7832 June, [facility] [place] [facility] [address] [id number] [place] [address]- 8465 June, [facility] [place] [facility] [address] [id number] [place] [address]- 8207 June, [facility] [place] [facility] [address] [id number] [place] [address]- 0416 June, [facility] [place] [facility] [address] [id number] [place] [address]- 7419 June, [facility] [place] [facility] [address] [id number] [place] [address]- 9088 June, [facility] [place] [facility] [address] [id number] [place] [address]- 9065 June, [facility] [place] [facility] [address] [id number] [place] [address]- 6016 June, [facility] [place] [facility] [address] [id number] [place] [address]- 1023 June, [facility] [place] [facility] [address] [id number] [place] [address] June, IMMUNIZATIONS No Known Immunizations SOCIAL HISTORY Never Assessed REASON FOR VISIT COPD f/u per DANY --- [facility] PLAN OF CARE Activity Details Follow Up 1 Week with Dany f/briseyda COPD exacerbation Reason: VITAL SIGNS Height 69 in 2016-06-05 Weight 121.0 lbs 2016-06-05 Temperature 98.0 degrees Fahrenheit 2016-06-05 Heart Rate 86 bpm 2016-06-05 Respiratory Rate 24 2016-06-05 Oximetry 98.0 % 2016-06-05 BMI 17.87 kg/m2 2016-06-05 Blood pressure systolic 150 mmHg 2016-06-05 Blood pressure diastolic 90 mmHg 2016-06-05 MEDICATIONS Medication Instructions Dosage Frequency Start Date End Date Duration Status Levaquin 750 MG Orally Once a day 1 tablet 24h May, May, 07 days Active Symbicort 160-4.5 mcg/act 1 puff BID 12h Jul, Active PredniSONE 20 mg Orally Once a day 2 tabs twice a day for 3 days then 2 tabs once a day for 3 days then 1 tab daily for 3 D then 1/2 tab daily for 4D 24h May, June, 30 day(s) Active ProAir HFA 108 (90 Base) MCG/ACT Inhalation every 4 hrs-6 hours 2 puffs as needed May, Active RESULTS No Results PROCEDURES Procedure Date Ordered Result Body Site MEASURE BLOOD OXYGEN LEVEL June 05, 2016 [facility] VISIT ESTABLISHED PATIENT June 05, 2016 INSTRUCTIONS MEDICATIONS ADMINISTERED No Known Medications MEDICAL (GENERAL) HISTORY Type Description Date Medical History type II diabetes Medical History chronic obstructive pulmonary disease (COPD) Medical History hypertension Surgical History appendectomy Surgical History Dental surgery Hospitalization History COPD multiple times 2015
--- OUTSIDE RECORDS SUMMARY | 2017-10-13 12:54 | XMS REPORT ---
Author Author BRIDGER SAENZ Organization [facility] Address [address] [place] [address] Care Team Providers Care Compensation Advisor Name Role Phone BRIDGER SAENZ Unavailable PROBLEMS Type Condition ICD9-CM Code FTH87-OI Code Onset Dates Condition Status SNOMED Code Problem Moderate episode of recurrent major depressive disorder F33.1 Active 273222268 Problem 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 Active 30343119 Problem End stage COPD J44.9 Active 881175480 Problem COPD with exacerbation J44.1 Active 793738287 Problem Essential hypertension I10 Active 09130603 Problem Tobacco use Z72.0 Active 245989273 Problem COPD exacerbation J44.1 Active 831093452 Problem 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.9 Active 720013538 ALLERGIES No Information SOCIAL HISTORY Never Assessed PLAN OF CARE VITAL SIGNS MEDICATIONS Medication Instructions Dosage Frequency Start Date End Date Duration Status Ventolin HFA 108 (90 Base) MCG/ACT Inhalation every 4-6 hrs as needed 2 puffs as needed June, Active RESULTS No Results PROCEDURES No Known procedures IMMUNIZATIONS No Known Immunizations MEDICAL (GENERAL) HISTORY Type Description Date Medical History type II diabetes Medical History chronic obstructive pulmonary disease (COPD) Medical History hypertension Surgical History appendectomy Surgical History Dental surgery Hospitalization History COPD multiple times 2015
--- OUTSIDE RECORDS SUMMARY | 2017-10-13 12:54 | XMS REPORT ---
Author Author BRIDGER SAENZ Organization [facility], [place] Address [address] [place] [address] Care Team Providers Care Concrete Building Assembler Name Role Phone BRIDGER SAENZ Unavailable PROBLEMS Type Condition ICD9-CM Code LKT16-HB Code Onset Dates Condition Status SNOMED Code Problem End stage COPD J44.9 Active 407294496 Problem Moderate episode of recurrent major depressive disorder F33.1 Active 025168700 Problem Essential hypertension I10 Active 46494063 Problem 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 Active 59533313 Problem Tobacco use Z72.0 Active 336467391 ALLERGIES No Information ENCOUNTERS Encounter Location Date Diagnosis [facility], [place] [id number] [place] [address] 79109- 2137 Jul, [facility], [place] [id number] [place] [address] 28832- 0230 Jan, 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 [facility] [place] [id number] [place] [address] 40110- 1572 Jan, Essential hypertension I10 [facility] [place] [id number] [place] [address] 15843- 2095 Jan, [facility] [place] [id number] [place] [address] 37978- 5097 Jan, [facility] [place] [id number] [place] [address] 17711- 8417 Dec, [facility] [place] [id number] [place] [address] 39501- 8842 Dec, [facility] [place] [id number] [place] [address] 79301- 5074 Nov, 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.9 and End stage COPD J44.9 [facility], [place] [id number] [place] [address] 20084- 5009 29 Oct, 2016 Essential hypertension I10 ; Tobacco use Z72.0 and COPD exacerbation J44.1 [facility] [place] [id number] [place] [address] 89005- 5390 28 Oct, 2016 Essential hypertension I10 ; COPD exacerbation J44.1 ; Right arm pain M79.601 and Thickened nails L60.2 [place] [id number] [place] [address] 02796- 3016 Aug, [place] [address] 59843- 8783 Aug, [place] [id number] [place] [address] 49978- 7080 Jul, [place] [id number] [place] [address] 94947- 7985 June, [place] [id number] [place] [address] 21787- 2282 May, COPD with exacerbation J44.1 and Essential hypertension I10 [facility] [place] [id number] [place] [address] 35224- 4279 May, 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.9 and COPD exacerbation J44.1 [place] [id number] [place] [address] 38688- 0177 Apr, Essential hypertension I10 [place] [id number] [place] [address] 46862- 2415 Apr, Onychomycosis B35.1 ; Nail hypertrophy L60.2 and Self-care deficit for hygiene R46.0 [facility], [place] [id number] [place] [address] 17361- 6384 Jan, 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 ; 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.9 ; Tobacco use Z72.0 ; Essential hypertension I10 and Moderate episode of recurrent major depressive disorder F33.1 [facility] [address] [address] Dec, Neck pain M54.2 ; Essential hypertension I10 and Tobacco dependence F17.200 [facility], [place] [address] [address]- 3826 14 May, 2014 [facility] [place] [id number] [place] [address] 44793- 8523 May, [facility] [place] [address] [address]- 5369 Sep, [facility] [place] [id number] [place] [address] 61245- 0442 Sep, [facility] [place] [id number] [place] [address] 63552- 4098 Sep, [facility] [place] [id number] [place] [address] 90639- 7209 Sep, [facility] [place] [address] [address]- 3530 Aug, [facility] [place] [id number] [address]- 5106 Aug, [facility] [place] [address], [place] [address]- 8389 Jul, [facility] [place] [address] [address]- 3142 Jul, [facility] [place] [address] [address]- 8458 Jul, [facility] [place] [address] [address]- 1715 Jul, [facility] [place] [address] [address]- 4722 Jul, [facility] [place] [address] [address] [place] [address]- 8578 Jul, [facility] [address] [id number] [place] [address]- 0224 Jul, [facility] [address] [id number] [place] [address]- 7594 Jul, [facility] [address] [id number] [place] [address]- 5260 Jul, [facility] [address] [id number] [place] [address]- 2481 June, [facility] [address] [id number] [place] [address]- 2149 June, [facility] [address] [id number] [place] [address]- 3785 June, [facility] [address] [id number] [place] [address]- 1095 June, [facility] [address] [id number] [place] [address]- 7626 June, [facility] [address] [id number] [place] [address]- 8594 June, [facility] [address] [id number] [place] [address]- 3547 June, [facility] [address] [id number] [place] [address]- 8232 June, [facility] [address] [id number] [place] [address]- 9399 June, [facility] [address] [id number] [place] [address]- 1675 June, [facility] [address] [id number] [place] [address]- 1405 June, [facility] [place] [address] [id number] [place] [address]- 6177 June, IMMUNIZATIONS No Known Immunizations SOCIAL HISTORY Never Assessed REASON FOR VISIT Refill Request PLAN OF CARE VITAL SIGNS MEDICATIONS Medication Instructions Dosage Frequency Start Date End Date Duration Status Lisinopril 10 mg Orally Once a day 1 tablet 24h Dec, Active RESULTS No Results PROCEDURES No Known procedures INSTRUCTIONS MEDICATIONS ADMINISTERED No Known Medications MEDICAL (GENERAL) HISTORY Type Description Date Medical History type II diabetes Medical History chronic obstructive pulmonary disease (COPD) Medical History hypertension Surgical History appendectomy Surgical History Dental surgery Hospitalization History COPD multiple times 2015
--- OUTSIDE RECORDS SUMMARY | 2017-10-13 12:54 | XMS REPORT ---
Author Author MARIELA HENDERSON [facility] Address [address] [place] [address] Care Team Providers Care Lab Analyst Name Role Phone MARIELA HENDERSON Unavailable PROBLEMS Type Condition ICD9-CM Code WSN23-GF Code Onset Dates Condition Status SNOMED Code Problem Tobacco use Z72.0 Active 328144821 Problem COPD with exacerbation J44.1 Active 281704489 Problem COPD exacerbation J44.1 Active 574002643 Problem Moderate episode of recurrent major depressive disorder F33.1 Active 789718931 Problem 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 Active 81901869 Problem 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.9 Active 246406709 Problem Essential hypertension I10 Active 83821590 ALLERGIES Substance Reaction Event Type Date Status Chicken, [place] Unknown Non Drug Allergy Apr, Active SOCIAL HISTORY Never Assessed PLAN OF CARE VITAL SIGNS Height 69 in 2016-05-01 Weight 122.4 lbs 2016-05-01 Temperature 98.0 degrees Fahrenheit 2016-05-01 Heart Rate 73 bpm 2016-05-01 Respiratory Rate 24 2016-05-01 Oximetry on room air:96 % 2016-05-01 BMI 18.07 kg/m2 2016-05-01 Blood pressure systolic 190 mmHg 2016-05-01 Blood pressure diastolic 100 mmHg 2016-05-01 MEDICATIONS Medication Instructions Dosage Frequency Start Date End Date Duration Status Albuterol Sulfate 90 mcg/actuation 2 puffs by Inhalation route every 4-6 hours as needed PRN Jul, Active Symbicort 160-4.5 mcg/actuation 1 puff BID 12h Jul, Active Lisinopril 10 mg Orally Once a day 1 tablet 24h Dec, Active RESULTS No Results PROCEDURES Procedure Date Ordered Result Body Site TRIM NAIL(S) 2016-05-01 N/A MEASURE BLOOD OXYGEN LEVEL May 01, 2016 TRIM NAIL(S) May 01, 2016 IMMUNIZATIONS No Known Immunizations MEDICAL (GENERAL) HISTORY Type Description Date Medical History type II diabetes Medical History chronic obstructive pulmonary disease (COPD) Medical History hypertension Surgical History appendectomy Surgical History Dental surgery Hospitalization History COPD multiple times 2016
--- OUTSIDE RECORDS SUMMARY | 2017-10-13 12:54 | XMS REPORT ---
Author Author BRIDGER SAENZ Organization [facility] Address [address] [place] [address] Care Team Providers Care Financial Processing Clerk Name Role Phone BRIDGER SAENZ Unavailable PROBLEMS Type Condition ICD9-CM Code FZG75-OB Code Onset Dates Condition Status SNOMED Code Problem End stage COPD J44.9 Active 570384339 Problem Moderate episode of recurrent major depressive disorder F33.1 Active 683605878 Problem Essential hypertension I10 Active 44261535 Problem 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 Active 10439126 Problem Tobacco use Z72.0 Active 801541214 ALLERGIES No Information ENCOUNTERS Encounter Location Date Diagnosis [facility] [id number] [place] [address] 62393- 1824 Jul, [facility] [id number] [place] [address] 36310- 1679 Jan, 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 [facility] [id number] [place] [address] 92611- 6381 Jan, Essential hypertension I10 [facility] [id number] [place] [address] 06147- 3233 Jan, [facility] [id number] [place] [address] 25887- 8512 Jan, [facility] [id number] [place] [address] 88044- 2466 Dec, [facility] [id number] [place] [address] 65338- 2661 Dec, [facility] [id number] [place] [address] 50469- 7627 Nov, 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.9 and End stage COPD J44.9 [facility] [id number] [place] [address] 14420- 3093 29 Oct, 2016 Essential hypertension I10 ; Tobacco use Z72.0 and COPD exacerbation J44.1 [facility] [id number] [place] [address] 14598- 9600 28 Oct, 2016 Essential hypertension I10 ; COPD exacerbation J44.1 ; Right arm pain M79.601 and Thickened nails L60.2 [facility] [id number] [place] [address] 38476- 9959 Aug, [place] [address] [address]2220- 7494 Aug, [facility] [id number] [place] [address] 66817- 6189 Jul, [facility] [facility] [id number] [place] [address] 68963- 4900 June, [facility] [id number] [place] [address] 27586- 2375 May, COPD with exacerbation J44.1 and Essential hypertension I10 [facility] [id number] [place] [address] 49291- 3405 May, 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.9 and COPD exacerbation J44.1 [facility] [id number] [place] [address] 93457- 3686 Apr, Essential hypertension I10 [facility] [id number] [place] [address] 85825- 3084 Apr, Onychomycosis B35.1 ; Nail hypertrophy L60.2 and Self-care deficit for hygiene R46.0 [facility] [id number] [place] [address] 12779- 1730 Jan, 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 ; 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.9 ; Tobacco use Z72.0 ; Essential hypertension I10 and Moderate episode of recurrent major depressive disorder F33.1 [facility] [address] [place] [address] Dec, Neck pain M54.2 ; Essential hypertension I10 and Tobacco dependence F17.200 [facility] [address] [place] [address] 6337 14 May, 2014 [facility] [id number] [place] [address] 52114- 5246 May, [facility] [address] [place] [address]- 6374 Sep, [facility] [id number] [place] [address] 42445- 1580 Sep, [facility] [id number] [place] [address] 56846- 8829 Sep, [facility] [id number] [place] [address] 49974- 9598 Sep, [facility] [address], [place] [address]- 1254 Aug, [facility] [id number] [address]- 4898 Aug, [facility] [address] [place] [address]- 9308 Jul, [facility] [address] [place] [address]- 3363 Jul, [facility] [address] [place] [address]- 1232 Jul, [facility] [address] [place] [address]- 5736 Jul, [facility] [id number], [place] [address]- 5453 Jul, [facility] [address] [address] [address]31 Jul, [facility] [address] [id number] [place] [address]- 3462 Jul, [facility] [address] [id number] [place] [address]- 8644 Jul, [facility] [address] [id number] [place] [address]- 5832 Jul, [facility] [address] [id number] [place] [address]- 0188 June, [facility] [address] [id number] [place] [address]- 5009 June, [facility] [address] [id number] [place] [address]- 3997 June, [facility] [address] [id number] [place] [address]- 4359 June, [facility] [address] [id number] [place] [address]- 6504 June, [facility] [address] [id number] [place] [address]- 5834 June, [facility] [address] [id number] [place] [address]- 7637 June, [facility] [address] [id number] [place] [address]- 7172 June, [facility] [address] [id number] [place] [address]- 1075 June, [facility] [address] [id number] [place] [address]- 0296 June, [facility] [address] [id number] [place] [address]- 1237 June, [facility] [address] [id number] [place] [address]- 1568 June, IMMUNIZATIONS No Known Immunizations SOCIAL HISTORY Never Assessed REASON FOR VISIT refill PLAN OF CARE VITAL SIGNS MEDICATIONS Medication [...]
--- OUTSIDE RECORDS SUMMARY | 2017-10-13 12:54 | XMS REPORT ---
Author CARROLL Veliz [facility] eClinical[employer] Address Unknown Phone Unavailable Care Team Providers Care Sfdc Technical Architect Name Role Phone CARROLL SOTO CP Unavailable Allergies, Adverse Reactions, Alerts Substance Reaction Event Type Chicken, [place] Info Not Available Non Drug Allergy Problems Problem Type Condition Code Onset Dates Condition Status Assessment Tobacco dependence F17.200 Active Assessment Neck pain M54.2 Active Assessment Essential hypertension I10 Active Problem Elevated blood pressure reading without diagnosis of hypertension 796.2 Active Problem Other dyspnea and respiratory abnormalities 786.09 Active Problem Chronic airway obstruction, not elsewhere classified 496 Active Problem Other abnormal glucose 790.29 Active Problem Diabetes mellitus without mention of complication, type II or unspecified type, not stated as uncontrolled 250.00 Active Problem Nondependent tobacco use disorder 305.1 Active Problem Personal history of tobacco use, presenting hazards to health V15.82 Active Medications Medication Code System Code Instructions Start Date End Date Status Dosage Mobic [facility] [address]-44 15 MG Orally Once a day Jan 21, 2016 Feb 20, 2016 1 tablet Lisinopril [facility] [address]-00 10 mg Orally Once a day Jan 21, 2016 1 tablet Procedures Procedure Coding System Code Date Office Visit, Est Pt., Level 3 CPT-4 45941 Jan 21, 2016 MEASURE BLOOD OXYGEN LEVEL CPT-4 73819 Jan 21, 2016 Vital Signs Date/Time: Jan 21, 2016 Cardiac Monitoring Heart Rate 90 bpm Weight 122.0 lbs Height 69 in BMI 18.01 Index Oximetry 98 % Blood Pressure Diastolic 98 mmHg Blood Pressure Systolic 186 mmHg Results No Known Results Summary Purpose eClinicalWorks Submission
--- OUTSIDE RECORDS SUMMARY | 2017-10-13 12:54 | XMS REPORT ---
Author Author BRIDGER SAENZ Organization [facility] [place] Address [address] [place] [address] Care Team Providers Care Primary School Teacher Librarian Name Role Phone BRIDGER SAENZ Unavailable PROBLEMS Type Condition ICD9-CM Code CMU13-HU Code Onset Dates Condition Status SNOMED Code Problem Moderate episode of recurrent major depressive disorder F33.1 Active 679326041 Problem 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 Active 84783555 Problem End stage COPD J44.9 Active 115846669 Problem COPD with exacerbation J44.1 Active 255070160 Problem Essential hypertension I10 Active 69581942 Problem Tobacco use Z72.0 Active 536545498 Problem COPD exacerbation J44.1 Active 969152220 Problem 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
--- OUTSIDE RECORDS SUMMARY | 2017-10-13 12:54 | XMS REPORT ---
Author Author BRIDGER SAENZ Organization [facility] [place] Address [address] [place] [address] Care Team Providers Care Customer Resolution Specialist Name Role Phone BRIDGER SAENZ Unavailable PROBLEMS Type Condition ICD9-CM Code PQP19-TK Code Onset Dates Condition Status SNOMED Code Problem End stage COPD J44.9 Active 230794138 Problem Moderate episode of recurrent major depressive disorder F33.1 Active 163144545 Problem Essential hypertension I10 Active 63597788 Problem 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 Active 91848397 Problem Tobacco use Z72.0 Active 282114661 ALLERGIES No Information ENCOUNTERS Encounter Location Date Diagnosis [facility] [place] [id number] [place] [address] 15030- 5471 Aug, [facility] [place] [id number] [place] [address] 99016- 4877 Jan, 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 [facility] [place] [id number] [place] [address] 99831- 9826 Jan, Essential hypertension I10 [facility] [place] [id number] [place] [address] 31105- 3632 Jan, [facility] [place] [id number] [place] [address] 08258- 0465 Jan, [facility] [place] [id number] [place] [address] 68648- 0931 Dec, [facility] [place] [id number] [place] [address] 23943- 3817 Dec, [facility] [place] [id number] [place] [address] 80260- 1610 Nov, 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.9 and End stage COPD J44.9 [facility] [place] [id number] [place] [address] 44939- 9997 29 Oct, 2016 Essential hypertension I10 ; Tobacco use Z72.0 and COPD exacerbation J44.1 [facility] [place] [id number] [place] [address] 87281- 7895 28 Oct, 2016 Essential hypertension I10 ; COPD exacerbation J44.1 ; Right arm pain M79.601 and Thickened nails L60.2 [facility] [facility] [id number] [place] [address] 10798- 5300 Aug, [place] [address] 68687- 4258 Aug, [facility] [id number] [place] [address] 56480- 6584 Jul, [facility] [facility] [id number] [place] [address] 73111- 3540 June, [facility] [id number] [place] [address] 77862- 5427 May, COPD with exacerbation J44.1 and Essential hypertension I10 [facility] [id number] [place] [address] 22147- 5622 May, 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.9 and COPD exacerbation J44.1 [facility] [id number] [place] [address] 10530- 6499 Apr, Essential hypertension I10 [facility] [id number] [place] [address] 79146- 3090 Apr, Onychomycosis B35.1 ; Nail hypertrophy L60.2 and Self-care deficit for hygiene R46.0 [facility] [place] [id number] [place] [address] 70088- 5177 Jan, 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 ; 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.9 ; Tobacco use Z72.0 ; Essential hypertension I10 and Moderate episode of recurrent major depressive disorder F33.1 [facility] [address] [address] Dec, Neck pain M54.2 ; Essential hypertension I10 and Tobacco dependence F17.200 [facility] [place] [address] [address]- 5748 14 May, 2014 [facility] [place] [id number] [place] [address] 10021- 7957 May, [facility] [place] [address] [address]- 2087 Sep, [facility] [place] [id number] [place] [address] 11062- 9884 Sep, [facility] [place] [id number] [place] [address] 11656- 6879 Sep, [facility] [place] [id number] [place] [address] 04507- 6472 Sep, [facility] [place] [id number] [address]- 4443 Aug, [facility] [place] [id number] [address]- 7700 Aug, [facility] [place] [address], [place] [address]- 7981 Jul, [facility] [place] [id number] [address]- 5469 Jul, [facility] [place] [address], [place] [address]- 8552 Jul, [facility] [place] [id number], [place] [address]- 6878 Jul, [facility] [place] [id number], [place] [address]- 5468 Jul, [facility] [place] [address] [address] [place] [address]- 5914 Jul, [facility] [address] [id number] [place] [address]- 2857 Jul, [facility] [address] [id number] [place] [address]- 5133 Jul, [facility] [address] [id number] [place] [address]- 7351 Jul, [facility] [address] [id number] [place] [address]- 8721 June, [facility] [address] [id number] [place] [address]- 3972 June, [facility] [address] [id number] [place] [address]- 9518 June, [facility] [address] [id number] [place] [address] 6260 June, [facility] [address] [id number] [place] [address] 7244 June, [facility] [address] [id number] [place] [address] 4254 June, [facility] [address] [id number] [place] [address] 8485 June, [facility] [address] [id number] [place] [address]- 6407 June, [facility] [address] [id number] [place] [address]- 2975 June, [facility] [address] [id number] [place] [address]- 0951 June, [facility] [address] [id number] [place] [address]- 4450 June, [facility] [place] [address] [id number] [place] [address]- 1530 June, IMMUNIZATIONS No Known Immunizations SOCIAL HISTORY Never Assessed REASON FOR VISIT Medication refill request PLAN OF CARE VITAL SIGNS MEDICATIONS Medication Instructions Dosage Frequency Start Date End Date Duration Status Prodigy No Coding Blood Gluc - In Vitro 2 times a day DX: E11.9 as directed Jan, Active RESULTS No Results PROCEDURES No Known procedures INSTRUCTIONS MEDICATIONS ADMINISTERED No Known Medications MEDICAL (GENERAL) HISTORY Type Description Date Medical History type II diabetes Medical History chronic obstructive pulmonary disease (COPD) Medical History hypertension Surgical History appendectomy Surgical History Dental surgery Hospitalization History COPD multiple times 2015
--- OUTSIDE RECORDS SUMMARY | 2017-10-13 12:55 | XMS REPORT ---
Author Author BRIDGER SAENZ Organization [facility] [place] Address [address] [place] [address] Care Team Providers Care Clerical Specialist Name Role Phone BRIDGER SAENZ Unavailable PROBLEMS Type Condition ICD9-CM Code [id number] Code Onset Dates Condition Status SNOMED Code Problem End stage COPD J44.9 Active 893564494 Problem Moderate episode of recurrent major depressive disorder F33.1 Active 971680499 Problem Essential hypertension I10 Active 25202116 Problem 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 Active 00221265 Problem Tobacco use Z72.0 Active [id number] ALLERGIES No Information ENCOUNTERS Encounter Location Date Diagnosis [facility] [id number] [place] [address] 1988 Jul, [facility] [place] [id number] [place] [address] 9[address]50- 6859 Jan, 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 [facility] [place] [id number] [place] [address] 64195- 8741 Jan, Essential hypertension I10 [facility] [place] [id number] [place] [address] 93047- 4356 Jan, [facility] [place] [id number] [place] [address] 71881- 4801 Jan, [facility] [place] [id number] [place] [address] 58477- 4009 Dec, [facility] [place] [id number] [place] [address] 72743- 1468 Dec, [facility] [place] [id number] [place] [address] 92254- 1836 Nov, 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.9 and End stage COPD J44.9 [facility] [place] [id number] [place] [address] 54540- 3141 29 Oct, 2016 Essential hypertension I10 ; Tobacco use Z72.0 and COPD exacerbation J44.1 [facility] [place] [id number] [place] [address] 24476- 5665 28 Oct, 2016 Essential hypertension I10 ; COPD exacerbation J44.1 ; Right arm pain M79.601 and Thickened nails L60.2 [place] [id number] [place] [address] 31721- 7509 Aug, [place] [address] [address]- [address]6 Aug, [place] [id number] [place] [address] 19999- 0205 Jul, [place] [id number] [place] [address] 39576- 5686 June, [place] [id number] [place] [address] 44956- 8811 May, COPD with exacerbation J44.1 and Essential hypertension I10 [place] [facility] [id number] [place] [address] 15124- 9101 May, 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.9 and COPD exacerbation J44.1 [place] [id number] [place] [address] 69835- 8181 Apr, Essential hypertension I10 [place] [facility] [id number] [place] [address] 00541- 2435 Apr, Onychomycosis B35.1 ; Nail hypertrophy L60.2 and Self-care deficit for hygiene R46.0 [facility] [place] [address] [place] [address] 98914- 3939 Jan, 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 ; 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.9 ; Tobacco use Z72.0 ; Essential hypertension I10 and Moderate episode of recurrent major depressive disorder F33.1 [facility] [address] [address] Dec, Neck pain M54.2 ; Essential hypertension I10 and Tobacco dependence F17.200 [facility] [place] [address] [address] 14 May, 2014 [facility] [place] [id number] [place] [address] 13872- 4811 May, [facility] [place] [address] [place] [address] Sep, [facility] [place] [id number] [place] [address] 67016- 8364 Sep, [facility] [place] [id number] [place] [address] 07701- 6138 Sep, [facility] [place] [id number] [place] [address] 60504- 3048 Sep, [facility] [place] [address] [address] Aug, [facility] [place] [address] [address] Aug, [facility] [place] [address] [address] Jul, [facility] [place] [address] [place] [address] 2412 Jul, [facility] [place] [address] [place] [address]25 Jul, [facility] [place] [address] [place] [address] 2877 Jul, [facility] [place] [address] [address] 3967 Jul, [facility] [place] [address] [address] [place] [address] Jul, [facility] [address] [id number] [place] [address]- [address] Jul, [facility] [address] [id number] [place] [address]- 2579 Jul, [facility] [address] [id number] [place] [address]- 6486 Jul, [facility] [address] [id number] [place] [address]- 6256 June, [facility] [address] [id number] [place] [address]- 3703 June, [facility] [address] [id number] [place] [address]- 5937 June, [facility] [address] [id number] [place] [address]- 8288 June, [facility] [address] [id number] [place] [address]- 5493 June, [facility] [address] [id number] [place] [address]- 9134 June, [facility] [address] [id number] [place] [address]- 0132 June, [facility] [address] [id number] [place] [address]- 7419 June, [facility] [address] [id number] [place] [address]- 9854 June, [facility] [address] [id number] [place] [address]- 7293 June, [facility] [address] [id number] [place] [address]- 2316 June, [facility] [place] [address] [id number] [place] [address]- 6470 June, IMMUNIZATIONS No Known Immunizations SOCIAL HISTORY Never Assessed REASON FOR VISIT Phone call PLAN OF CARE VITAL SIGNS MEDICATIONS Unknown Medications RESULTS No Results PROCEDURES No Known procedures INSTRUCTIONS MEDICATIONS ADMINISTERED No Known Medications MEDICAL (GENERAL) HISTORY Type Description Date Medical History type II diabetes Medical History chronic obstructive pulmonary disease (COPD) Medical History hypertension Surgical History appendectomy Surgical History Dental surgery Hospitalization History COPD multiple times 2016
--- OUTSIDE RECORDS SUMMARY | 2017-10-13 12:55 | XMS REPORT | Continuity of Care Document ---
Author Author [facility] Address Unknown Phone Unavailable Allergies Active Description Code Type Severity Reaction Onset Reported/Identified Relationship to Patient Clinical Status Yes No Known Drug Allergies [id number] Drug Allergy Unknown N/A 04/09/2012 Medications There is no data. Problems Date Dx Coded Attending Type Code Diagnosis Diagnosed By 04/09/2012 Ot 305.90 DRUG ABUSE NEC-UNSPEC 04/09/2012 Ot 780.79 OTH MALAISE FATIGUE 04/09/2012 Ot 786.50 CHEST PAIN NOS 04/09/2012 Ot 791.9 ABN URINE FINDINGS NEC 07/11/2013 MADL DIRECTOR PHONE, LENIN L 305.1 TOBACCO ABUSE 07/11/2013 MADL DIRECTOR PHONE, LENIN L 496 CHRONIC AIRWAY OBSTRUCTION NOT ELSEWHERE CLASSIFIED 07/11/2013 MADL DIRECTOR PHONE, LENIN L 786.09 RESPIRATORY ABNORMALITY OTHER 07/11/2013 MADL DIRECTOR PHONE, LENIN L 796.2 ELEVATED BLOOD PRESSURE READING WITHOUT DIAGNOSIS OF HYPERTENSION 07/11/2013 MADL DIRECTOR PHONE, LENIN L 305.1 TOBACCO ABUSE 07/11/2013 MADL DIRECTOR PHONE, LENIN L 496 CHRONIC AIRWAY OBSTRUCTION NOT ELSEWHERE CLASSIFIED 07/11/2013 MADL DIRECTOR PHONE, LENIN L 786.09 RESPIRATORY ABNORMALITY OTHER 07/11/2013 MADL DIRECTOR PHONE, LENIN L 796.2 ELEVATED BLOOD PRESSURE READING WITHOUT DIAGNOSIS OF HYPERTENSION 07/11/2013 MADL DIRECTOR PHONE, LENIN L 305.1 TOBACCO ABUSE 07/11/2013 MADL DIRECTOR PHONE, LENIN L 496 CHRONIC AIRWAY OBSTRUCTION NOT ELSEWHERE CLASSIFIED 07/11/2013 MADL DIRECTOR PHONE, LENIN L 786.09 RESPIRATORY ABNORMALITY OTHER 07/11/2013 MADL DIRECTOR PHONE, LENIN L 796.2 ELEVATED BLOOD PRESSURE READING WITHOUT DIAGNOSIS OF HYPERTENSION 07/11/2013 MADL DIRECTOR PHONE, LENIN L 305.1 TOBACCO ABUSE 07/11/2013 MADL DIRECTOR PHONE, LENIN L 496 CHRONIC AIRWAY OBSTRUCTION NOT ELSEWHERE CLASSIFIED 07/11/2013 MADL DIRECTOR PHONE, LENIN L 786.09 RESPIRATORY ABNORMALITY OTHER 07/11/2013 MADL DIRECTOR PHONE, LENIN L 796.2 ELEVATED BLOOD PRESSURE READING WITHOUT DIAGNOSIS OF HYPERTENSION 07/11/2013 MADL DIRECTOR PHONE, LENIN L 305.1 TOBACCO ABUSE 07/11/2013 MADL DIRECTOR PHONE, LENIN L 496 CHRONIC AIRWAY OBSTRUCTION NOT ELSEWHERE CLASSIFIED 07/11/2013 MADL DIRECTOR PHONE, LENIN L 786.09 RESPIRATORY ABNORMALITY OTHER 07/11/2013 MADL DIRECTOR PHONE, LENIN L 796.2 ELEVATED BLOOD PRESSURE READING WITHOUT DIAGNOSIS OF HYPERTENSION 07/11/2013 MADL DIRECTOR PHONE, LENIN L 305.1 TOBACCO ABUSE 07/11/2013 MADL DIRECTOR PHONE, LENIN L 496 CHRONIC AIRWAY OBSTRUCTION NOT ELSEWHERE CLASSIFIED 07/11/2013 MADL DIRECTOR PHONE, LENIN L 786.09 RESPIRATORY ABNORMALITY OTHER 07/11/2013 MADL DIRECTOR PHONE, LENIN L 796.2 ELEVATED BLOOD PRESSURE READING WITHOUT DIAGNOSIS OF HYPERTENSION 07/11/2013 MADL DIRECTOR PHONE, LENIN L 305.1 TOBACCO ABUSE 07/11/2013 MADL DIRECTOR PHONE, LENIN L 496 CHRONIC AIRWAY OBSTRUCTION NOT ELSEWHERE CLASSIFIED 07/11/2013 MADL DIRECTOR PHONE, LENIN L 786.09 RESPIRATORY ABNORMALITY OTHER 07/11/2013 MADL DIRECTOR PHONE, LENIN L 796.2 ELEVATED BLOOD PRESSURE READING WITHOUT DIAGNOSIS OF HYPERTENSION 07/13/2013 MADL DIRECTOR PHONE, LENIN L 790.29 ABNORMAL GLUCOSE 07/13/2013 MADL DIRECTOR PHONE, LENIN L 790.29 ABNORMAL GLUCOSE 07/13/2013 MADL DIRECTOR PHONE, LENIN L 790.29 ABNORMAL GLUCOSE 07/13/2013 MADL DIRECTOR PHONE, LENIN L 790.29 ABNORMAL GLUCOSE 07/13/2013 MADL DIRECTOR PHONE, LENIN L 790.29 ABNORMAL GLUCOSE 07/13/2013 MADL DIRECTOR PHONE, LENIN L 790.29 ABNORMAL GLUCOSE 07/27/2013 MADL DIRECTOR PHONE, LENIN L 250.00 DIABETES MELLITUS WITHOUT MENTION OF COMPLICATION TYPE II OR UNSPECIFIED TYPE NOT STATED UNCONTROLLED 07/27/2013 LENIN JENSEN APRN L 250.00 DIABETES MELLITUS WITHOUT MENTION OF COMPLICATION TYPE II OR UNSPECIFIED TYPE NOT STATED UNCONTROLLED 07/27/2013 MARINE JENSEN APRNA L 250.00 DIABETES MELLITUS WITHOUT MENTION OF COMPLICATION TYPE II OR UNSPECIFIED TYPE NOT STATED UNCONTROLLED 07/27/2013 MARINE JENSEN APRNA L 250.00 DIABETES MELLITUS WITHOUT MENTION OF COMPLICATION TYPE II OR UNSPECIFIED TYPE NOT STATED UNCONTROLLED 08/12/2013 RASHMI MARINE HIGHA L V15.82 NICOTINE ABUSE 08/12/2013 [facility] DIRECTOR PHONEMARINEA L V15.82 NICOTINE ABUSE 08/12/2013 [facility] DIRECTOR PHONEMARINE HernandezA L V15.82 NICOTINE ABUSE 08/20/2015 AROLDO POST APRN Ot F17.210 NICOTINE DEPENDENCE, CIGARETTES, UNCOMPL 08/20/2015 AROLDO POST APRN Ot I70.8 ATHEROSCLEROSIS OF OTHER ARTERIES 08/20/2015 AROLDO POST APRN Ot J44.1 CHRONIC OBSTRUCTIVE PULMONARY DISEASE W 08/20/2015 AROLDO POST APRN Ot Z59.0 HOMELESSNESS 08/21/2015 AROLDO POST APRN Ot F17.210 NICOTINE DEPENDENCE, CIGARETTES, UNCOMPL 08/21/2015 AROLDO POST APRN Ot I70.8 ATHEROSCLEROSIS OF OTHER ARTERIES 08/21/2015 AROLDO POST APRN Ot J44.1 CHRONIC OBSTRUCTIVE PULMONARY DISEASE W 08/21/2015 AROLDO POST APRN Ot Z59.0 HOMELESSNESS 03/25/2016 DAVIE MENDOZA MD Ot E11.9 TYPE 2 DIABETES MELLITUS WITHOUT COMPLIC 03/25/2016 DAVIE MENDOZA MD T Ot F12.10 CANNABIS ABUSE, UNCOMPLICATED 03/25/2016 DAVIE MENDOZA MD Ot F15.10 OTHER STIMULANT ABUSE, UNCOMPLICATED 03/25/2016 DAVIE MENDOZA MD T Ot F17.210 NICOTINE DEPENDENCE, CIGARETTES, UNCOMPL 03/25/2016 DAVIE MENDOZA MD Ot J44.1 CHRONIC OBSTRUCTIVE PULMONARY DISEASE W 03/25/2016 DAVIE MENDOZA MD Ot R41.0 DISORIENTATION, UNSPECIFIED 03/26/2016 DAVIE MENDOZA MD Ot E11.9 TYPE 2 DIABETES MELLITUS WITHOUT COMPLIC 03/26/2016 DAVIE MENDOZA MD Ot F12.10 CANNABIS ABUSE, UNCOMPLICATED 03/26/2016 DAVIE MENDOZA MD Ot F15.10 OTHER STIMULANT ABUSE, UNCOMPLICATED 03/26/2016 DAVIE MENDOZA MD Ot F17.210 NICOTINE DEPENDENCE, CIGARETTES, UNCOMPL 03/26/2016 DAVIE MENDOZA MD Ot J44.1 CHRONIC OBSTRUCTIVE PULMONARY DISEASE W 03/26/2016 DAVIE MENDOZA MD Ot R41.0 DISORIENTATION, UNSPECIFIED 03/27/2016 Ot 305.90 DRUG ABUSE NEC-UNSPEC 03/27/2016 Ot 780.79 OTH MALAISE FATIGUE 03/27/2016 Ot 786.50 CHEST PAIN NOS 03/27/2016 Ot 791.9 ABN URINE FINDINGS NEC 03/27/2016 AROLDO POST APRN Ot F17.210 NICOTINE DEPENDENCE, CIGARETTES, UNCOMPL 03/27/2016 AROLDO POST APRN Ot I70.8 ATHEROSCLEROSIS OF OTHER ARTERIES 03/27/2016 AROLDO POST APRN Ot J44.1 CHRONIC OBSTRUCTIVE PULMONARY DISEASE W 03/27/2016 AROLDO POST APRN Ot Z59.0 HOMELESSNESS 04/04/2016 DAVIE MENDOZA MD Ot E11.9 TYPE 2 DIABETES MELLITUS WITHOUT COMPLIC 04/04/2016 DAVIE MENDOZA MD Ot F12.10 CANNABIS ABUSE, UNCOMPLICATED 04/04/2016 DAVIE MENDOZA MD Ot F15.10 OTHER STIMULANT ABUSE, UNCOMPLICATED 04/04/2016 DAVIE MENDOZA MD Ot F17.210 NICOTINE DEPENDENCE, CIGARETTES, UNCOMPL 04/04/2016 DAVIE MENDOZA MD Ot J44.1 CHRONIC OBSTRUCTIVE PULMONARY DISEASE W 04/04/2016 DAVIE MENDOZA MD Ot R41.0 DISORIENTATION, UNSPECIFIED 04/11/2016 AROLDO POST APRN Ot F17.210 NICOTINE DEPENDENCE, CIGARETTES, UNCOMPL 04/11/2016 AROLDO POST APRN Ot I70.8 ATHEROSCLEROSIS OF OTHER ARTERIES 04/11/2016 AROLDO POST APRN Ot J44.1 CHRONIC OBSTRUCTIVE PULMONARY DISEASE W 04/11/2016 AROLDO POST DIRECTOR PHONE Ot Z59.0 HOMELESSNESS Procedures Code Description [place] [address] ROUTINE VENIPUNCTURE 07/12/2013 77181 XRAY CHEST 2 VIEW 07/12/2013 16864 PULMONARY FUNCTION TEST (IN- HOUSE) 07/12/2013 35091 PULMONARY EDUCATION 07/12/2013 01661 OXIMETRY 07/12/2013 59454 A1C (IN-HOUSE) 07/12/2013 39764 CBC 07/12/2013 [id number] GFR CALC (RESULT ONLY) 07/12/2013 33371 CMP 07/12/2013 79458 LIPID PANEL 07/12/2013 75705 ROUTINE VENIPUNCTURE 07/13/2013 34089 GLUCOSE SHANIKA 2 HOUR 07/13/2013 99376 ROUTINE VENIPUNCTURE 07/27/2013 60868 MICRO ALBUMIN-IN HOUSE 07/27/2013 55712 BMP 07/27/2013 [id number] GFR CALC (RESULT ONLY) 07/27/2013 86259 PULMONARY FUNCTION TEST (IN- HOUSE) 08/12/2013 65043 BRONCHODILATION PRE/POST 08/12/2013 08990 RESPIRATORY FLOW VOLUME LOOP 08/12/2013 55434 PULMONARY EDUCATION 08/12/2013 G0437 TOBACCO-USE LEAD WORKER OF HOUSEKEEPING AND LAUNDRY>10MIN 08/12/2013 56717 OXIMETRY - OVERNIGHT 08/19/2013 21891 OXIMETRY 10/17/2013 88168 A1C (IN-HOUSE) 10/17/2013 Results Test Result Range Bacterial blood culture - 03/25/16 15:30 Bacterial blood culture NG NRG Complete blood count (CBC) with automated white blood cell (WBC) differential - 03/25/16 15:35 Blood leukocytes automated count (number/volume) 10.2 10*3/uL 4.3-11.0 Blood erythrocytes automated count (number/volume) 4.72 10*6/uL 4.35-5.85 Venous blood hemoglobin measurement (mass/volume) 14.4 g/dL 13.3-17.7 Blood hematocrit (volume fraction) 43 % 40-54 Automated erythrocyte mean corpuscular volume 92 [foz_us] 80-99 Automated erythrocyte mean corpuscular hemoglobin (mass per erythrocyte) 31 pg 25-34 Automated erythrocyte mean corpuscular hemoglobin concentration measurement ( mass/volume) 33 g/dL 32-36 Automated erythrocyte distribution width ratio 13.7 % 10.0-14.5 Automated blood platelet count (count/volume) 234 10*3/uL 130-400 Automated blood platelet mean volume measurement 9.8 [foz_us] 7.4-10.4 Automated blood neutrophils/100 leukocytes 54 % 42-75 Automated blood lymphocytes/100 leukocytes 37 % 12-44 Blood monocytes/100 leukocytes 9 % 0-12 Automated blood eosinophils/100 leukocytes 1 % 0-10 Automated blood basophils/100 leukocytes 0 % 0-10 Blood neutrophils automated count (number/volume) 5.5 10*3 1.8-7.8 Blood lymphocytes automated count (number/volume) 3.7 10*3 1.0-4.0 Blood monocytes automated count (number/volume) 0.9 10*3 0.0-1.0 Automated eosinophil count 0.1 10*3/uL 0.0-0.3 Automated blood basophil count (count/volume) 0.0 10*3/uL 0.0-0.1 PT panel in platelet poor plasma by coagulation assay - 03/25/16 15:35 Prothrombin time (PT) in platelet poor plasma by coagulation assay 13.1 s 12.2-14.7 INR in platelet poor plasma or blood by coagulation assay 1.0 0.8-1.4 Activated partial thromboplastin time (aPTT) in platelet poor plasma bycoagulation assay - 03/25/16 15:35 Activated partial thromboplastin time (aPTT) in platelet poor plasma bycoagulation assay 26 s 24-35 Blood lactic acid measurement (moles/volume) - 03/25/16 15:35 Blood lactic acid measurement (moles/volume) 1.3 mmol/L 0.5-2.0 Comprehensive metabolic panel - 03/25/16 15:35 Serum or plasma sodium measurement (moles/volume) 142 mmol/L 135-145 Serum or plasma potassium measurement (moles/volume) 3.9 mmol/L 3.6-5.0 Serum or plasma chloride measurement (moles/volume) 104 mmol/L 98-107 Carbon dioxide 30 mmol/L 21-32 Serum or plasma anion gap determination (moles/volume) 8 mmol/L 5-14 Serum or plasma urea nitrogen measurement (mass/volume) 16 mg/dL 7-18 Serum or plasma creatinine measurement (mass/volume) 1.11 mg/dL 0.60-1.30 Serum or plasma urea nitrogen/creatinine mass ratio 14 NRG Serum or plasma creatinine measurement with calculation of estimated glomerular filtration rate > NRG Serum or plasma glucose measurement (mass/volume) 73 mg/dL 70-105 Serum or plasma calcium measurement (mass/volume) 9.4 mg/dL 8.5-10.1 Serum or plasma total bilirubin measurement (mass/volume) 0.3 mg/dL 0.1-1.0 Serum or plasma alkaline phosphatase measurement (enzymatic activity/volume) 41 U/L 40-136 Serum or plasma aspartate aminotransferase measurement (enzymatic activity/ volume) 14 U/L 5-34 Serum or plasma alanine aminotransferase measurement (enzymatic activity/volume ) 11 U/L 0-55 Serum or plasma protein measurement (mass/volume) 7.3 g/dL 6.4-8.2 Serum or plasma albumin measurement (mass/volume) 4.2 g/dL 3.2-4.5 Lipase - 03/25/16 15:35 Lipase 15 U/L 8-78 Serum or plasma ethanol measurement (mass/volume) - 03/25/16 15:35 Serum or plasma ethanol measurement (mass/volume) < mg/dL <10 Bacterial blood culture - 03/25/16 15:35 Bacterial blood culture NG NRG Complete urinalysis with reflex to culture - 03/25/16 16:41 Urine color determination YELLOW NRG Urine clarity determination CLEAR NRG Urine pH measurement by test strip 7 5-9 Specific gravity of urine by test strip 1.010 1.016- 1.022 Urine protein assay by test strip, semi-quantitative 1+ NEGATIVE Urine glucose detection by automated test strip NEGATIVE NEGATIVE Erythrocytes detection in urine sediment by light microscopy NEGATIVE NEGATIVE Urine ketones detection by automated test strip NEGATIVE NEGATIVE Urine nitrite detection by test strip NEGATIVE NEGATIVE Urine total bilirubin detection by test strip NEGATIVE NEGATIVE Urine urobilinogen measurement by automated test strip (mass/volume) NORMAL NORMAL Urine leukocyte esterase detection by dipstick NEGATIVE NEGATIVE Automated urine sediment erythrocyte count by microscopy (number/high power field) NONE NRG Automated urine sediment leukocyte count by microscopy (number/high power field ) RARE NRG Bacteria detection in urine sediment by light microscopy NONE NRG Crystals detection in urine sediment by light microscopy NONE NRG Casts detection in urine sediment by light microscopy NONE NRG Mucus detection in urine sediment by light microscopy NEGATIVE NRG Complete urinalysis with reflex to culture NO NRG Urine drug screening test - 03/25/16 16:41 Urine phencyclidine detection by screening method NEGATIVE NEGATIVE Urine benzodiazepines detection by screening method NEGATIVE NEGATIVE Urine cocaine detection NEGATIVE NEGATIVE Urine amphetamines detection by screening method POSITIVE NEGATIVE Urine methamphetamine detection by screening method POSITIVE NEGATIVE Urine cannabinoids detection by screening method POSITIVE NEGATIVE Urine opiates detection by screening method NEGATIVE NEGATIVE Urine barbiturates detection NEGATIVE NEGATIVE Screening urine tricyclic antidepressants detection NEGATIVE NEGATIVE Urine methadone detection by screening method NEGATIVE NEGATIVE Urine oxycodone detection NEGATIVE NEGATIVE Urine propoxyphene detection NEGATIVE NEGATIVE Encounters ACCT No. Visit Date/Time Discharge Status Pt. Type Provider Facility Loc./Unit Complaint [id number] 10/17/2013 11:26:00 10/17/2013 23:59:59 CLS Outpatient MADL DIRECTOR PHONE, LENIN L [id number] 08/19/2013 13:38:00 08/19/2013 23:59:59 CLS Outpatient MADL DIRECTOR PHONE, LENIN L [id number] 08/12/2013 13:53:00 08/12/2013 23:59:59 CLS Outpatient MADL DIRECTOR PHONE, LENIN L [id number] 07/27/2013 10:25:00 07/27/2013 23:59:59 CLS Outpatient MADL DIRECTOR PHONE, LENIN L [id number] 07/13/2013 12:15:00 07/13/2013 23:59:59 CLS Outpatient MADL DIRECTOR PHONE, LENIN L [id number] 07/12/2013 08:49:00 07/12/2013 23:59:59 CLS Outpatient MADL DIRECTOR PHONE, LENIN L [id number] 07/11/2013 13:28:00 07/11/2013 23:59:59 CLS Outpatient MADL DIRECTOR PHONE, LENIN L [id number] 03/25/2016 14:44:00 03/25/2016 17:38:00 DIS Emergency KELLY GARCIA, DAVIE Meier [facility] ER CONFUSED [id number] 08/20/2015 16:32:00 08/20/2015 23:59:59 CLS Outpatient AROLDO POST APRN [facility] ER CONFUSION,POSSIBLE DEHYDRATION [id number] 04/09/2012 14:07:00 Document Registration [id number] 12/04/2016 11:00:00 12/04/2016 23:59:59 CLS Outpatient BRIDGER SAENZ [facility]
--- NOTE | 2017-10-13 13:36 | ED Cough/URI ---
General Chief Complaint: Respiratory Problems Stated Complaint: SOB Nursing Triage Note: PT ARRIVED ON STRETCHER VIA EMS, COMPLAINING OF NON STOP PRODUCTIVE COUGHING THAT BEGAN AFTER HE TOOK PERSCRIBED NISTATIN. PT STATES HIS THROAT IS VERY SORE AND DYER. Source: patient, EMS Exam Limitations: no limitations History of Present Illness Date Seen by Provider: Oct 13, 2017 Time Seen by Provider: 13:31 Initial Comments Patient is a 76-year-old male who was brought to the emergency room by [facility] with complaints of a productive cough for one week. He is currently being treated for thrush in his mouth and has nystatin liquid prescribed and he thinks the cough started after this. He states that he also has a sore throat. Timing/Duration: week Severity/Quality: productive cough Prior Episodes/Possible Cause: no prior episodes Associated Symptoms: cough, sore throat Allergies and Home Medications Allergies Coded Allergies: No Known Drug Allergies (Unverified , 04/09/12) Home Medications Albuterol 17 Gm Inh, 2 SPRAY IH Q 4 HOURS PRN FOR BREATHING Prescribed by: GIANNI PABLO on 04/09/12 1758 Benzonatate 100 Mg Capsule, 100 MG PO TID Prescribed by: JOAN CEE on 10/13/17 1556 Cefdinir 300 Mg Capsule, 300 MG PO BID Prescribed by: JOAN CEE on 10/13/17 1556 Fentanyl 1 Each Patch.td72, 50 MCG TD Q72H, (Reported) Lisinopril 10 Mg Tablet, 10 MG PO DAILY, (Reported) Promethazine HCl 25 Mg Tablet, 25 MG PO Q6H PRN for NAUSEA/VOMITING, (Reported) Patient Home Medication List Home Medication List Reviewed: Yes Review of Systems Constitutional: see HPI; No chills, No fever EENTM: see HPI, throat pain Respiratory: see HPI, cough; No short of breath All Other Systems Reviewed Negative Unless Noted: Yes Past Rwozqvp-Jvbuug-Wkcuhn Hx Past Med/Social Hx: Reviewed Nursing Past Med/Soc Hx Patient Social History Recent Foreign Travel: No Contact w/Someone Who Travel: No Recent Infectious Disease Expo: Yes Recent Hopitalizations: No Past Medical History Surgeries: Yes (APPY) Appendectomy Respiratory: Yes COPD Cardiac: No Neurological: Yes Neuropathy Reproductive Disorders: No Gastrointestinal: No Musculoskeletal: No Endocrine: Yes Diabetes, Non-Insulin dep Cancer: No Psychosocial: Yes (substance abuse, hx homelessness) Family Medical History Reviewed Nursing Family Hx Physical Exam Vital Signs - First Documented 10/13/17 10/13/17 12:53 15:20 Temp 97.5 Pulse 104 Resp 28 B/P (MAP) 151/101 (118) Pulse Ox 96 O2 Delivery Nasal Cannula O2 Flow Rate 2.00 FiO2 99 Capillary Refill : Greater Than 3 Seconds Height: 5'9.00" Weight: 105lbs. oz. 47.021266ld; 16.98 BMI Method:Stated General Appearance: WD/WN, no apparent distress HEENT: PERRL/EOMI, normal ENT inspection, TMs normal, pharynx normal Respiratory: chest non-tender, lungs clear, normal breath sounds, no respiratory distress, no accessory muscle use Cardiovascular: regular rate, rhythm, no edema, no gallop, no JVD, no murmur Neurologic/Psychiatric: alert, normal mood/affect, oriented x 3 Skin: normal color, warm/dry Focused Exam Lactate Level 10/13/17 14:07: Lactic Acid Level 1.99 Lactic Acid Level Laboratory Tests Test 10/13/17 14:07 Lactic Acid Level 1.99 MMOL/L (0.50-2.00) Progress/Results/Core Measures Suspected Sepsis Recent Fever Within 48 Hours: No Infection Criteria Present: Documented Infection New/Unexplained Altered Menta: No Sepsis Screen: Possible Sepsis Risk SIRS Temperature:97.5 Pulse: 104 Respiratory Rate: 28 Laboratory Tests 10/13/17 14:07: White Blood Count 15.0H Blood Pressure 151 /101 Mean: 118 10/13/17 14:07: Lactic Acid Level 1.99 Laboratory Tests 10/13/17 14:07: Creatinine 0.86, INR Comment 1.1, Platelet Count 286, Total Bilirubin 0.5 Results/Orders Lab Results Laboratory Tests Test 10/13/17 14:07 10/13/17 14:56 10/13/17 15:08 Range/Units White Blood Count 15.0 H 4.3-11.0 10^3/uL Red Blood Count 4.58 4.35-5.85 10^6/uL Hemoglobin 14.0 13.3-17.7 G/DL Hematocrit 41 40-54 % Mean Corpuscular Volume 90 80-99 FL Mean Corpuscular Hemoglobin 31 25-34 PG Mean Corpuscular Hemoglobin Concent 34 32-36 G/DL Red Cell Distribution Width 14.3 10.0-14.5 % Platelet Count 286 130-400 10^3/uL Mean Platelet Volume 9.3 7.4-10.4 FL Neutrophils (%) (Auto) 75 42-75 % Lymphocytes (%) (Auto) 19 12-44 % Monocytes (%) (Auto) 5 0-12 % Eosinophils (%) (Auto) 0 0-10 % Basophils (%) (Auto) 0 0-10 % Neutrophils # (Auto) 11.2 H 1.8-7.8 X 10^3 Lymphocytes # (Auto) 2.9 1.0-4.0 X 10^3 Monocytes # (Auto) 0.8 0.0-1.0 X 10^3 Eosinophils # (Auto) 0.1 0.0-0.3 10^3/uL Basophils # (Auto) 0.0 0.0-0.1 10^3/uL Neutrophils % (Manual) 64 % Lymphocytes % (Manual) 30 % Monocytes % (Manual) 3 % Eosinophils % (Manual) 1 % Basophils % (Manual) 0 % Band Neutrophils 2 % Poikilocytosis SLIGHT Elliptocytes SLIGHT Acanthocytes SLIGHT Prothrombin Time 14.2 12.2-14.7 SEC INR Comment 1.1 0.8-1.4 Activated Partial Thromboplast Time 28 24-35 SEC Sodium Level 137 135-145 MMOL/L Potassium Level 5.5 H 3.6-5.0 MMOL/L Chloride Level 102 98-107 MMOL/L Carbon Dioxide Level 24 21-32 MMOL/L Anion Gap 11 5-14 MMOL/L Blood Urea Nitrogen 31 H 7-18 MG/DL Creatinine 0.86 0.60-1.30 MG/DL Estimat Glomerular Filtration Rate > 60 BUN/Creatinine Ratio 36 Glucose Level 99 70-105 MG/DL Lactic Acid Level 1.99 0.50-2.00 MMOL/L Calcium Level 10.3 H 8.5-10.1 MG/DL Corrected Calcium 10.0 8.5-10.1 MG/DL Total Bilirubin 0.5 0.1-1.0 MG/DL Aspartate Amino Transf (AST/SGOT) 15 5-34 U/L Alanine Aminotransferase (ALT/SGPT) 11 0-55 U/L Alkaline Phosphatase 38 L 40-136 U/L Total Protein 8.2 6.4-8.2 GM/DL Albumin 4.4 3.2-4.5 GM/DL Group A Streptococcus Screen NEGATIVE NEGATIVE Urine Color YELLOW Urine Clarity CLEAR Urine pH 5 5-9 Urine Specific [place] 1.020 1.016-1.022 Urine Protein 2+ H NEGATIVE Urine Glucose (UA) NEGATIVE NEGATIVE Urine Ketones NEGATIVE NEGATIVE Urine Nitrite NEGATIVE NEGATIVE Urine Bilirubin NEGATIVE NEGATIVE Urine Urobilinogen NORMAL NORMAL MG/DL Urine Leukocyte Esterase NEGATIVE NEGATIVE Urine RBC (Auto) NEGATIVE NEGATIVE Urine RBC NONE /HPF Urine WBC RARE /HPF Urine Crystals NONE /LPF Urine Bacteria NEGATIVE /HPF Urine Casts NONE /LPF Urine Mucus NEGATIVE /LPF Urine Culture Indicated NO Micro Results Microbiology 10/13/17 Throat Culture - Preliminary, Resulted No Beta Strep isolated 10/13/17 Gram Stain - Final, Resulted 10/13/17 Sputum Culture - Preliminary, Resulted Sent To [facility] 10/13/17 Urine Culture - Preliminary, Resulted Sent To [facility] My Orders Orders - JOAN CEE Cbc With Automated Diff (10/13/17 13:29) Comprehensive Metabolic Panel (10/13/17 13:29) Blood Culture (10/13/17 13:29) Sputum Culture (10/13/17 13:29) Urinalysis (10/13/17 13:29) Protime With Inr (10/13/17 13:29) Partial Thromboplastin Time (10/13/17 13:29) Chest 1 View, Ap/Pa Only (10/13/17 13:29) Saline Lock/Iv-Start (10/13/17 13:29) Vital Signs Adult Sepsis Patie Q15M (10/13/17 13:29) O2 (10/13/17 13:29) Remove Rings In Anticipation O (10/13/17 13:29) Lactic Acid Analyzer (10/13/17 13:29) Rapid Strep A Screen (10/13/17 13:36) Urine Culture (10/13/17 13:29) Manual Differential (10/13/17 14:07) Vital Signs/I&O 10/13/17 10/13/17 10/13/17 12:53 15:20 16:09 Temp 97.5 99.0 Pulse 104 86 Resp 28 22 B/P (MAP) 151/101 (118) 142/93 Pulse Ox 96 98 98 O2 Delivery Nasal Cannula Nasal Cannula Nasal Cannula O2 Flow Rate 2.00 2.00 FiO2 99 Capillary Refill : Greater Than 3 Seconds Blood Pressure Mean: 118 Progress Note : Progress Note I have seen and evaluated the patient. I've discussed the plan of care with the hospice nurse who accompanied him to the emergency room and he and his nurse agree with the care. Return precautions were given. Departure Impression Primary Impression: Upper respiratory infection Disposition: HOME, SELF-CARE Condition: Stable/Unchanged Departure-Patient Inst. Decision time for Depature: 15:52 Referrals: [facility] [place] (PCP/Family) Primary Care Physician Patient Instructions: Bacterial Upper Respiratory Infection, Adult Add. Discharge Instructions: Take medications as directed follow-up with your doctor within 1 week for recheck. Return back to the emergency room for any worsening symptoms or any other concerns as needed. All discharge instructions reviewed with patient and/ or family. Voiced understanding. Scripts Cefdinir (Cefdinir) 300 Mg Capsule 300 MG PO BID for 20 Days, #10 CAP Prov: JOAN CEE 10/13/17 Benzonatate (Tessalon Perle) 100 Mg Capsule 100 MG PO TID, #10 CAP Prov: JOAN CEE 10/13/17 JOAN CEE Oct 13, 2017 13:36
--- NOTE | 2017-10-13 13:57 | Diagnostic Imaging Report ---
Indication: Cough. Frontal chest obtained at 1:36 hours p.m. and compared to 03/25/2016 Heart is normal size. There is hyperinflation compatible with COPD. There are chronic-appearing increased interstitial markings. There is no acute consolidation or pneumothorax or pleural fluid. There is a calcified granuloma in the right midlung as well as in the right hilum. Impression: COPD changes and old granulomatous changes. No acute consolidation or pleural fluid. Dictated by: Dictated on workstation # [id number]
[2017-10-13 14:28] LABS: BASOPHILS % (AUTO) 0 % (0-10); EOSINOPHILS # (AUTO) 0.1 10^3/uL (0.0-0.3); EOSINOPHILS % (AUTO) 0 % (0-10); HEMATOCRIT 41 % (40-54); LYMPHOCYTES # (AUTO) 2.9 X 10^3 (1.0-4.0); LYMPHOCYTES % (AUTO) 19 % (12-44); MEAN CORPUSCULAR HEMOGLOBIN 31 PG (25-34); MEAN CORPUSCULAR HGB CONC 34 G/DL (32-36); MEAN CORPUSCULAR VOLUME 90 FL (80-99); MEAN PLATELET VOLUME 9.3 FL (7.4-10.4); MONOCYTES # (AUTO) 0.8 X 10^3 (0.0-1.0); MONOCYTES % (AUTO) 5 % (0-12); NEUTROPHILS # (AUTO) 11.2 X 10^3 (1.8-7.8); NEUTROPHILS % (AUTO) 75 % (42-75); PLATELET COUNT 286 10^3/uL (130-400); RED BLOOD COUNT 4.58 10^6/uL (4.35-5.85); RED CELL DISTRIBUTION WIDTH 14.3 % (10.0-14.5)
[2017-10-13 14:41] LABS: INR 1.1 (0.8-1.4); PROTHROMBIN TIME PATIENT 14.2 SEC (12.2-14.7)
[2017-10-13] MEDS ORDERED: FENT1PAT58 TD (14:45)
[2017-10-13] MEDS ORDERED: LORA1TAB PO (14:45)
[2017-10-13] MEDS ORDERED: PROM25TA14 PO (14:45)
[2017-10-13] MEDS ORDERED: HYDR-3820 PO (14:45)
[2017-10-13] MEDS ORDERED: NYST1000 PO (14:45)
[2017-10-13] MEDS ORDERED: LISI10TA2 PO (14:45)
[2017-10-13 14:47] LABS: ALANINE AMINOTRANSFERASE 11 U/L (0-55); ALBUMIN 4.4 GM/DL (3.2-4.5); ALKALINE PHOSPHATASE 38 U/L (40-136); BILIRUBIN,TOTAL 0.5 MG/DL (0.1-1.0); BUN/CREATININE RATIO 36; CALCIUM 10.3 MG/DL (8.5-10.1); CARBON DIOXIDE 24 MMOL/L (21-32); CHLORIDE 102 MMOL/L (98-107); CREATININE SERUM 0.86 MG/DL (0.60-1.30); GFR ESTIMATED > 60; GLUCOSE 99 MG/DL (70-105); POTASSIUM 5.5 MMOL/L (3.6-5.0); SODIUM 137 MMOL/L (135-145); TOTAL PROTEIN 8.2 GM/DL (6.4-8.2)
[2017-10-13 15:23] LABS: BILIRUBIN,URINE NEGATIVE (NEGATIVE); CLARITY,URINE CLEAR; COLOR,URINE YELLOW; GLUCOSE, URINE (UA) NEGATIVE (NEGATIVE); KETONES,URINE NEGATIVE (NEGATIVE); LEUKOCYTE ESTERASE ,URINE NEGATIVE (NEGATIVE); NITRITE,URINE NEGATIVE (NEGATIVE); PH,URINE 5 (5-9); PROTEIN,URINE 2+ (NEGATIVE); UROBILINOGEN,URINE NORMAL (NORMAL)
[2017-10-13 15:40] LABS: BACTERIA,URINE NEGATIVE /HPF; WBC,URINE RARE /HPF
[2017-10-13] MEDS ORDERED: CEFD300C3 PO (15:56)
[2017-10-13] MEDS ORDERED: BENZ-13 PO (15:56)
[2017-10-13 16:09] VITALS: BP 142/93
[2017-10-14 09:45] LABS: ACANTHOCYTES SLIGHT; BAND NEUTROPHILS 2 %; BASOPHILS % (MANUAL) 0 %; ELLIPT/OVALOCYTES SLIGHT; EOSINOPHILS % (MANUAL) 1 %; LYMPHOCYTES % (MANUAL) 30 %; MONOCYTES % (MANUAL) 3 %; NEUTROPHILS % (MANUAL) 64 %; POIKILOCYTOSIS SLIGHT
== END 2017-10-13 16:27 | disposition home or self-care (01) ==
LOC: EDUNIT# 12:47 → ER 12:49
DX: J06.9 Acute upper respiratory infection, unspecified (principal); J44.9 Chronic obstructive pulmonary disease, unspecified; E11.40 Type 2 diabetes mellitus with diabetic neuropathy, unspecified; Z90.49 Acquired absence of other specified parts of digestive tract
CPT/HCPCS: 36415; 71045; 80053; 81000; 83605; 85007; 85025; 85027; 85610; 85730; 87040; 87070; 87088; 87205; 87430

== ENCOUNTER 2018-09-07 01:15 | Emergency (ER) | payer MEDICAID, MEDICARE ==
[~2018-09-07] VITALS: Ht 175.3 cm; Wt 47.6 kg
[~2018-09-07 01:15] MED LIST changes: +BENZ100C18 PO; +CEFD300C3 PO; +FENT1PAT58 TD; +HYDR-3820 PO; +LISI10TA2 PO; +LORA1TAB PO; +NYST1000 PO; +PROM25TA14 PO
[2018-09-07] MEDS ORDERED: oxyCODONE/APAP 5/325MG (PERCOCET 5) TABLET PO ONE (01:30)
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
[2018-09-07] MEDS ORDERED: fentaNYL PATCH 50 MCG (DURAGESIC) TD ONE (03:00)
[2018-09-07] MEDS ORDERED: fentaNYL INJECTION 100 MCG/2 ML AMP IM ONE (03:00)
[2018-09-07 03:19] VITALS: BP 162/83
--- NOTE | 2018-09-07 03:30 | NUR ---
PT CAREGIVER SENT HOME TO GET PT HOME OXYGEN TO BE DISMISSED.
--- NOTE | 2018-09-07 08:12 | Diagnostic Imaging Report ---
PROCEDURE: CT chest without contrast. TECHNIQUE: Multiple contiguous axial images were obtained through the chest without the use of intravenous contrast. Auto Exposure Controls were utilized during the CT exam to meet ALARA standards for radiation dose reduction. INDICATION: Status post recent fall with pain in right ribs. CORRELATION STUDY: None FINDINGS: Evaluation of the mediastinal structures limited given lack of contrast. Heart size within normal limits. Trace pericardial effusion versus pericardial thickening. Coronary artery calcification. Thoracic aortic contour unremarkable with mild to moderate wall calcification. No definitive mediastinal hematoma. Lung zapata demonstrate advanced emphysematous changes to be present. Subtle segmental opacities at the posterior right lung base are present. Initial presumed area of scarring superolateral aspect of the right lower lobe. There is a sliver of a pneumothorax anteriorly on the right at the level of the aortic arch. Initially a small area is noted both medially and posteriorly at the inferior aspect. Displaced posterior right 11th and 12th rib fractures. Advanced degenerative changes thoracic and superior lumbar spine. IMPRESSION: 1. Displaced posterior right 11th and 12th rib fractures. 2. Trace right-sided pneumothorax. 3. Segmental opacities at the posterior right lung base. Given location and proximity to the rib fractures, suspect for potential areas of pulmonary contusion. Superimposed infiltrate or other underlying process not excluded. Findings are superimposed on rather advanced centrilobular emphysematous changes of the lung zapata. A preliminary report was provided by Shanna. Dictated by: Dictated on workstation # [id number]
== END 2018-09-07 03:19 | disposition home or self-care (01) ==
LOC: EDUNIT# 01:15 → ER 01:17
DX: S22.41XA Multiple fractures of ribs, right side, initial encounter for closed fracture (principal); S27.321A Contusion of lung, unilateral, initial encounter; S27.0XXA Traumatic pneumothorax, initial encounter; J44.9 Chronic obstructive pulmonary disease, unspecified; E11.40 Type 2 diabetes mellitus with diabetic neuropathy, unspecified; Z99.81 Dependence on supplemental oxygen; Z87.891 Personal history of nicotine dependence; Z90.49 Acquired absence of other specified parts of digestive tract; W18.30XA Fall on same level, unspecified, initial encounter; Y92.129 Unspecified place in nursing home as the place of occurrence of the external cause
CPT/HCPCS: 71250; 96372